=== PATIENT | female | born 1955 | race Caucasian/White ===

== ENCOUNTER 2017-01-04 13:45 | Emergency (ER) | payer MEDICAID, OTHER ==
[~2017-01-04] VITALS: Ht 162.6 cm; Wt 100.0 kg
[~2017-01-04 13:45] MED LIST: ALBU8HFA4 IH; DOCU250C91 PO; LEVO50 PO; LITH300C3 PO; LORA0.5T83 PO; OMEP20 PO; QUET200XR PO; RISP3 PO
[2017-01-04] MEDS ORDERED: PROP10 PO (14:09)
[2017-01-04] MEDS ORDERED: PRAV10TA39 PO (14:09)
[2017-01-04] MEDS ORDERED: QUET300XR PO (14:09)
[2017-01-04] MEDS ORDERED: MONT10TA21 PO (14:09)
[2017-01-04] MEDS ORDERED: RISP1 PO (14:09)
[2017-01-04] MEDS ORDERED: ZOLP10 PO (14:09)
[2017-01-04] MEDS ORDERED: LORazepam 1 MG TABLET PO ONE (16:30)
[2017-01-04 16:37] LABS: BASOPHILS % (AUTO) 0.3 % (0.0-2.0); EOSINOPHILS % (AUTO) 2.8 % (1.0-6.0); HEMATOCRIT 37.7 % (36-46); HEMOGLOBIN 12.6 g/dL (12.0-16.0); LYMPHOCYTES # (AUTO) 1.9 K/uL (1.0-4.8); LYMPHOCYTES % (AUTO) 24.4 % (22.0-44.0); MEAN CORPUSCULAR HEMOGLOBIN 29.8 pg (26.0-34.0); MEAN CORPUSCULAR HGB CONC 33.6 G/dL (31.0-37.0); MEAN CORPUSCULAR VOLUME 89 fL (80-100); MONOCYTES # (AUTO) 0.9 K/uL (0.1-1.0); MONOCYTES % (AUTO) 10.8 % (2.0-9.0); NEUTROPHILS # (AUTO) 4.9 K/uL (1.8-7.7); NEUTROPHILS % (AUTO) 61.7 % (40.0-70.0); PLATELET COUNT (AUTO) 297 K/uL (150-450); RED BLOOD CELL COUNT(AUTO) 4.24 MIL/uL (4.00-5.20)
[2017-01-04 16:45] LABS: ANION GAP 6 mmol/L (8-16); CALCIUM, TOTAL 9.1 mg/dL (8.8-10.5); CARBON DIOXIDE 28 mmol/L (22-29); CHLORIDE 106 mmol/L (98-107); CREATININE 0.82 mg/dL (0.60-1.30); GLOMERULAR FILTR. RATE CALC > 60 mL/min (>60); POTASSIUM 3.9 mmol/L (3.5-5.1); SODIUM SERUM 140 mmol/L (136-145); UREA NITROGEN, BLOOD 12 mg/dL (7-18)
[2017-01-04 16:52] LABS: ALANINE AMINOTRANSFERASE 19 U/L (12-78); ALBUMIN 3.8 g/dL (3.4-5.0); ASPARTATE AMINOTRANSFERASE 12 U/L (15-37); BILIRUBIN,TOTAL 0.3 mg/dL (0.1-1.0); TOTAL PROTEIN, SERUM 7.4 g/dL (6.4-8.2)
[2017-01-04 19:41] VITALS: BP 121/69
== END 2017-01-04 19:42 | disposition home or self-care (01) ==
LOC: EMS 13:47
DX: F41.9 Anxiety disorder, unspecified (principal); F20.0 Paranoid schizophrenia
CPT/HCPCS: 36415; 80053; 85025; 99284; G0480

== ENCOUNTER 2017-04-21 14:45 | Inpatient (IN) | payer MEDICAID ==
[~2017-04-21] VITALS: Ht 157.5 cm; Wt 102.2 kg
[~2017-04-21 14:45] MED LIST changes: -ALBU8HFA4 IH; -LITH300C3 PO; +LITH600 PO; -LORA0.5T83 PO; +METR250T PO; +MONT10TA21 PO; +PRAV10TA39 PO; +PROP10TA73 PO; -QUET200XR PO; +QUET300XR PO; -RISP3 PO
[2017-04-21 15:10] VITALS: BP 131/73
[2017-04-21] MEDS ORDERED: HALOPERIDOL 5 MG TABLET PO PRN (16:00)
[2017-04-21] MEDS ORDERED: RANI150T7 PO (17:03)
[2017-04-21] MEDS ORDERED: RISP1 PO (17:03)
[2017-04-21] MEDS ORDERED: LORA0.5T83 PO (17:03)
[2017-04-21] MEDS ORDERED: ZOLP10TA7 PO (17:04)
[2017-04-21] MEDS ORDERED: INFLUENZA VIRUS VACCINE QVS 2017-18 (3YR+)/PF 60 MCG/0.5 ML SYRINGE IM ONE (17:15)
[2017-04-21 17:55] VITALS: BP 138/69
[2017-04-22 01:19] VITALS: BP 108/61
[2017-04-22 08:29] LABS: BASOPHILS # (AUTO) 0.05 K/uL (0.00-0.20); BASOPHILS % (AUTO) 0.6 % (0.0-2.0); EOSINOPHILS # (AUTO) 0.21 K/uL (0.00-0.70); EOSINOPHILS % (AUTO) 2.72 % (1.0-6.0); HEMATOCRIT 38.4 % (36-46); HEMOGLOBIN 12.9 g/dL (12.0-16.0); LYMPHOCYTES # (AUTO) 2.1 K/uL (1.0-4.8); LYMPHOCYTES % (AUTO) 27.2 % (22.0-44.0); MEAN CORPUSCULAR HEMOGLOBIN 30.3 pg (26.0-34.0); MEAN CORPUSCULAR HGB CONC 33.5 G/dL (31.0-37.0); MEAN CORPUSCULAR VOLUME 90 fL (80-100); MONOCYTES # (AUTO) 0.8 K/uL (0.1-1.0); MONOCYTES % (AUTO) 10.2 % (2.0-9.0); NEUTROPHILS # (AUTO) 4.6 K/uL (1.8-7.7); NEUTROPHILS % (AUTO) 59.2 % (40.0-70.0); PLATELET COUNT (AUTO) 252 K/uL (150-450); RED BLOOD CELL COUNT(AUTO) 4.26 MIL/uL (4.00-5.20); RED CELL DISTRIBUTION WIDTH 13.8 % (11.5-14.5); WHITE BLOOD COUNT (AUTO) 7.8 K/uL (4.5-11.0)
[2017-04-22 08:58] LABS: HEMOGLOBIN A1C 5.2 % (4.5-6.2)
[2017-04-22 09:08] VITALS: BP 134/78
[2017-04-22 09:31] LABS: LITHIUM 0.31 mmol/L (0.60-1.20)
[2017-04-22 09:40] LABS: CHOL/HDL RATIO 5.1 (3.9-5.7); THYROID STIMULATING HORMONE 6.13 uIU/mL (0.36-3.74)
[2017-04-22] MEDS ORDERED: ACETAMINOPHEN 325 MG TABLET PO PRN (10:00)
[2017-04-22 11:07] LABS: GLUCOSE,POINT OF CARE 107 MG/DL (70-110)
[2017-04-22] MEDS: LORazepam 1 MG TABLET PO PRN ×2 (13:15→20:26)
[2017-04-22] MEDS: LORazepam 0.5 MG TABLET PO SCH ×2 (13:33→16:30)
[2017-04-22] MEDS: PROPRANOLOL HCL 10 MG TABLET PO SCH ×2 (13:33→16:29)
[2017-04-22 16:30] VITALS: BP 121/67
[2017-04-22] MEDS: RisperiDONE 1 MG TABLET PO SCH (16:30)
[2017-04-22] MEDS: RANITIDINE HCL 150 MG TABLET PO SCH (20:26)
[2017-04-22] MEDS: LITHIUM CARBONATE 600 MG CAPSULE PO SCH (20:26)
[2017-04-22] MEDS: QUEtiapine FUMARATE 300 MG ER TABLET PO SCH (20:26)
[2017-04-22] MEDS: PRAVASTATIN SODIUM 10 MG TABLET PO SCH (20:27)
[2017-04-22] MEDS: ZOLPIDEM TARTRATE 10 MG TABLET PO PRN (20:57)
[2017-04-23 04:30] VITALS: BP 110/68
[2017-04-23] MEDS: IBUPROFEN 400 MG TABLET PO PRN (04:43)
[2017-04-23] MEDS ORDERED: LEVOTHYROXINE SODIUM 50 MCG TABLET PO SCH (06:30)
[2017-04-23] MEDS: LEVOTHYROXINE SODIUM 75 MCG TABLET PO SCH (06:39)
[2017-04-23] MEDS: MONTELUKAST SODIUM 10 MG TABLET PO SCH (08:43)
[2017-04-23] MEDS: RisperiDONE 1 MG TABLET PO SCH ×2 (08:43→16:16)
[2017-04-23] MEDS: LORazepam 0.5 MG TABLET PO SCH ×3 (08:43→16:16)
[2017-04-23] MEDS: PROPRANOLOL HCL 10 MG TABLET PO SCH ×3 (08:43→16:16)
[2017-04-23] MEDS: OMEPRAZOLE 20 MG CAPSULE PO SCH (08:43)
[2017-04-23 16:26] VITALS: BP 139/74
[2017-04-23] MEDS: PRAVASTATIN SODIUM 10 MG TABLET PO SCH (20:08)
[2017-04-23] MEDS: RANITIDINE HCL 150 MG TABLET PO SCH (20:08)
[2017-04-23] MEDS: QUEtiapine FUMARATE 300 MG ER TABLET PO SCH (20:08)
[2017-04-23] MEDS: LITHIUM CARBONATE 600 MG CAPSULE PO SCH (20:08)
[2017-04-23] MEDS: LORazepam 1 MG TABLET PO PRN (20:08)
[2017-04-24 00:08] VITALS: BP 113/62
[2017-04-24] MEDS: LEVOTHYROXINE SODIUM 75 MCG TABLET PO SCH (06:33)
[2017-04-24 08:31] VITALS: BP 121/75
[2017-04-24] MEDS: OMEPRAZOLE 20 MG CAPSULE PO SCH (08:43)
[2017-04-24] MEDS: MONTELUKAST SODIUM 10 MG TABLET PO SCH (08:43)
[2017-04-24] MEDS: LORazepam 0.5 MG TABLET PO SCH ×3 (08:43→16:10)
[2017-04-24] MEDS: RisperiDONE 1 MG TABLET PO SCH ×2 (08:43→16:09)
[2017-04-24] MEDS: PROPRANOLOL HCL 10 MG TABLET PO SCH ×3 (08:43→16:09)
[2017-04-24 16:26] VITALS: BP 125/86
[2017-04-24] MEDS: IBUPROFEN 400 MG TABLET PO PRN (18:36)
[2017-04-24] MEDS: PRAVASTATIN SODIUM 10 MG TABLET PO SCH (20:13)
[2017-04-24] MEDS: LITHIUM CARBONATE 600 MG CAPSULE PO SCH (20:13)
[2017-04-24] MEDS: RANITIDINE HCL 150 MG TABLET PO SCH (20:13)
[2017-04-24] MEDS: QUEtiapine FUMARATE 300 MG ER TABLET PO SCH (20:13)
[2017-04-25 00:10] VITALS: BP 114/61
[2017-04-25] MEDS: LEVOTHYROXINE SODIUM 75 MCG TABLET PO SCH (06:50)
[2017-04-25 08:28] VITALS: BP 115/67
[2017-04-25] MEDS: OMEPRAZOLE 20 MG CAPSULE PO SCH (09:15)
[2017-04-25] MEDS: LORazepam 0.5 MG TABLET PO SCH ×3 (09:15→16:08)
[2017-04-25] MEDS: PROPRANOLOL HCL 10 MG TABLET PO SCH ×3 (09:15→16:08)
[2017-04-25] MEDS: RisperiDONE 1 MG TABLET PO SCH ×2 (09:15→16:08)
[2017-04-25] MEDS: MONTELUKAST SODIUM 10 MG TABLET PO SCH (09:15)
[2017-04-25 13:03] VITALS: BP 136/71
[2017-04-25 16:09] VITALS: BP 111/67
[2017-04-25] MEDS: PALIPERIDONE 3 MG ER TABLET PO SCH (20:17)
[2017-04-25] MEDS: RANITIDINE HCL 150 MG TABLET PO SCH (20:17)
[2017-04-25] MEDS: QUEtiapine FUMARATE 300 MG ER TABLET PO SCH (20:17)
[2017-04-25] MEDS: PRAVASTATIN SODIUM 10 MG TABLET PO SCH (20:17)
[2017-04-25] MEDS: LITHIUM CARBONATE 600 MG CAPSULE PO SCH (20:17)
[2017-04-25] MEDS: ZOLPIDEM TARTRATE 10 MG TABLET PO PRN (20:46)
[2017-04-26 01:14] VITALS: BP 102/62
[2017-04-26] MEDS: IBUPROFEN 400 MG TABLET PO PRN (06:37)
[2017-04-26] MEDS: LEVOTHYROXINE SODIUM 75 MCG TABLET PO SCH (06:46)
[2017-04-26] MEDS: OMEPRAZOLE 20 MG CAPSULE PO SCH (08:21)
[2017-04-26] MEDS: RisperiDONE 1 MG TABLET PO SCH ×2 (08:21→16:53)
[2017-04-26] MEDS: LORazepam 0.5 MG TABLET PO SCH ×3 (08:22→17:36)
[2017-04-26] MEDS: MONTELUKAST SODIUM 10 MG TABLET PO SCH (09:00)
[2017-04-26] MEDS: PROPRANOLOL HCL 10 MG TABLET PO SCH ×3 (09:28→17:03)
[2017-04-26 10:24] VITALS: BP 100/64
[2017-04-26 17:00] VITALS: BP 110/70
[2017-04-26] MEDS: LITHIUM CARBONATE 600 MG CAPSULE PO SCH (20:00)
[2017-04-26] MEDS: RANITIDINE HCL 150 MG TABLET PO SCH (20:00)
[2017-04-26] MEDS: QUEtiapine FUMARATE 300 MG ER TABLET PO SCH (20:00)
[2017-04-26] MEDS: PALIPERIDONE 3 MG ER TABLET PO SCH (20:00)
[2017-04-26] MEDS: PRAVASTATIN SODIUM 10 MG TABLET PO SCH (20:00)
[2017-04-27 00:17] VITALS: BP 108/61
[2017-04-27] MEDS: LEVOTHYROXINE SODIUM 75 MCG TABLET PO SCH (06:21)
[2017-04-27] MEDS: LORazepam 0.5 MG TABLET PO SCH ×3 (09:05→16:08)
[2017-04-27] MEDS: MONTELUKAST SODIUM 10 MG TABLET PO SCH (09:06)
[2017-04-27] MEDS: RisperiDONE 1 MG TABLET PO SCH ×2 (09:06→16:08)
[2017-04-27] MEDS: OMEPRAZOLE 20 MG CAPSULE PO SCH (09:06)
[2017-04-27] MEDS: PROPRANOLOL HCL 10 MG TABLET PO SCH ×3 (09:30→16:08)
[2017-04-27 11:07] VITALS: BP 110/68
[2017-04-27 16:41] VITALS: BP 110/84
[2017-04-27] MEDS: PALIPERIDONE 3 MG ER TABLET PO SCH (20:07)
[2017-04-27] MEDS: RANITIDINE HCL 150 MG TABLET PO SCH (20:07)
[2017-04-27] MEDS: QUEtiapine FUMARATE 300 MG ER TABLET PO SCH (20:08)
[2017-04-27] MEDS: LITHIUM CARBONATE 600 MG CAPSULE PO SCH (20:08)
[2017-04-27] MEDS: PRAVASTATIN SODIUM 10 MG TABLET PO SCH (20:20)
[2017-04-27] MEDS: ZOLPIDEM TARTRATE 10 MG TABLET PO PRN (21:16)
[2017-04-28] MEDS: DENTURE ADHESIVE 68 GM CREAM DT PRN (01:03)
[2017-04-28 02:24] VITALS: BP 112/69
[2017-04-28] MEDS: IBUPROFEN 400 MG TABLET PO PRN (02:29)
[2017-04-28] MEDS: LEVOTHYROXINE SODIUM 75 MCG TABLET PO SCH (06:40)
[2017-04-28] MEDS: PROPRANOLOL HCL 10 MG TABLET PO SCH ×3 (09:07→16:15)
[2017-04-28] MEDS: OMEPRAZOLE 20 MG CAPSULE PO SCH (09:07)
[2017-04-28] MEDS: RisperiDONE 1 MG TABLET PO SCH ×2 (09:07→16:15)
[2017-04-28] MEDS: LORazepam 0.5 MG TABLET PO SCH ×3 (09:07→16:15)
[2017-04-28] MEDS: MONTELUKAST SODIUM 10 MG TABLET PO SCH (09:07)
[2017-04-28 09:46] VITALS: BP 115/62
[2017-04-28 12:29] VITALS: BP 118/72
[2017-04-28 16:13] VITALS: BP 121/71
[2017-04-28] MEDS: PALIPERIDONE 3 MG ER TABLET PO SCH (20:11)
[2017-04-28] MEDS: PRAVASTATIN SODIUM 10 MG TABLET PO SCH (20:11)
[2017-04-28] MEDS: RANITIDINE HCL 150 MG TABLET PO SCH (20:12)
[2017-04-28] MEDS: QUEtiapine FUMARATE 300 MG ER TABLET PO SCH (20:12)
[2017-04-28] MEDS: LITHIUM CARBONATE 600 MG CAPSULE PO SCH (20:12)
[2017-04-29 02:00] VITALS: BP 111/61
[2017-04-29] MEDS: LEVOTHYROXINE SODIUM 75 MCG TABLET PO SCH (06:52)
[2017-04-29 08:15] VITALS: BP 107/67
[2017-04-29] MEDS: OMEPRAZOLE 20 MG CAPSULE PO SCH (08:34)
[2017-04-29] MEDS: PROPRANOLOL HCL 10 MG TABLET PO SCH ×3 (08:34→16:17)
[2017-04-29] MEDS: LORazepam 0.5 MG TABLET PO SCH ×3 (08:34→16:17)
[2017-04-29] MEDS: MONTELUKAST SODIUM 10 MG TABLET PO SCH (08:34)
[2017-04-29] MEDS: RisperiDONE 1 MG TABLET PO SCH ×2 (08:34→16:17)
[2017-04-29] MEDS ORDERED: PALIPERIDONE PALMITATE 156 MG/ML SYRINGE IM SCH (09:00)
[2017-04-29 16:37] VITALS: BP 121/78
[2017-04-29] MEDS: RANITIDINE HCL 150 MG TABLET PO SCH (20:15)
[2017-04-29] MEDS: QUEtiapine FUMARATE 300 MG ER TABLET PO SCH (20:15)
[2017-04-29] MEDS: LITHIUM CARBONATE 600 MG CAPSULE PO SCH (20:16)
[2017-04-29] MEDS: PRAVASTATIN SODIUM 10 MG TABLET PO SCH (20:16)
[2017-04-30] MEDS ORDERED: MAGNESIUM HYDROXIDE SUSPENSION 30 ML UDCUP PO PRN (06:15)
[2017-04-30 06:55] VITALS: BP 117/76
[2017-04-30] MEDS: LEVOTHYROXINE SODIUM 75 MCG TABLET PO SCH (07:08)
[2017-04-30 09:00] VITALS: BP 128/58
[2017-04-30] MEDS: OMEPRAZOLE 20 MG CAPSULE PO SCH (09:05)
[2017-04-30] MEDS: RisperiDONE 1 MG TABLET PO SCH ×2 (09:05→16:25)
[2017-04-30] MEDS: PROPRANOLOL HCL 10 MG TABLET PO SCH ×3 (09:05→16:25)
[2017-04-30] MEDS: DOCUSATE SODIUM 250 MG CAPSULE PO SCH ×2 (09:05→16:25)
[2017-04-30] MEDS: LORazepam 0.5 MG TABLET PO SCH ×3 (09:05→16:24)
[2017-04-30] MEDS: MONTELUKAST SODIUM 10 MG TABLET PO SCH (09:05)
[2017-04-30 16:30] VITALS: BP 125/60
[2017-04-30] MEDS: ZOLPIDEM TARTRATE 10 MG TABLET PO PRN (20:38)
[2017-04-30] MEDS: RANITIDINE HCL 150 MG TABLET PO SCH (20:38)
[2017-04-30] MEDS: LITHIUM CARBONATE 600 MG CAPSULE PO SCH (20:38)
[2017-04-30] MEDS: QUEtiapine FUMARATE 300 MG ER TABLET PO SCH (20:38)
[2017-04-30] MEDS: PRAVASTATIN SODIUM 10 MG TABLET PO SCH (20:39)
[2017-05-01 00:11] VITALS: BP 101/67
[2017-05-01] MEDS: LEVOTHYROXINE SODIUM 75 MCG TABLET PO SCH (07:07)
[2017-05-01] MEDS: DENTURE ADHESIVE 68 GM CREAM DT PRN (07:09)
[2017-05-01] MEDS: OMEPRAZOLE 20 MG CAPSULE PO SCH (08:45)
[2017-05-01] MEDS: RisperiDONE 1 MG TABLET PO SCH ×2 (08:45→16:39)
[2017-05-01] MEDS: LORazepam 0.5 MG TABLET PO SCH ×3 (08:45→16:39)
[2017-05-01] MEDS: PROPRANOLOL HCL 10 MG TABLET PO SCH ×3 (08:45→16:39)
[2017-05-01] MEDS: DOCUSATE SODIUM 250 MG CAPSULE PO SCH ×2 (08:45→16:39)
[2017-05-01] MEDS: MONTELUKAST SODIUM 10 MG TABLET PO SCH (08:45)
[2017-05-01 09:29] VITALS: BP 121/49
[2017-05-01 12:44] VITALS: BP 122/75
[2017-05-01 16:14] VITALS: BP 128/88
[2017-05-01] MEDS: ZOLPIDEM TARTRATE 10 MG TABLET PO PRN (20:32)
[2017-05-01] MEDS: QUEtiapine FUMARATE 300 MG ER TABLET PO SCH (20:32)
[2017-05-01] MEDS: LITHIUM CARBONATE 600 MG CAPSULE PO SCH (20:33)
[2017-05-01] MEDS: RANITIDINE HCL 150 MG TABLET PO SCH (20:33)
[2017-05-01] MEDS: PRAVASTATIN SODIUM 10 MG TABLET PO SCH (20:33)
[2017-05-02] MEDS: LEVOTHYROXINE SODIUM 75 MCG TABLET PO SCH (06:41)
[2017-05-02 06:46] VITALS: BP 120/65
[2017-05-02 08:53] VITALS: BP 135/66
[2017-05-02] MEDS: OMEPRAZOLE 20 MG CAPSULE PO SCH (09:25)
[2017-05-02] MEDS: LORazepam 0.5 MG TABLET PO SCH ×3 (09:25→17:27)
[2017-05-02] MEDS: MONTELUKAST SODIUM 10 MG TABLET PO SCH (09:25)
[2017-05-02] MEDS: RisperiDONE 1 MG TABLET PO SCH ×2 (09:25→16:10)
[2017-05-02] MEDS: DOCUSATE SODIUM 250 MG CAPSULE PO SCH ×2 (09:25→16:10)
[2017-05-02] MEDS: PROPRANOLOL HCL 10 MG TABLET PO SCH ×3 (10:30→16:10)
[2017-05-02 16:28] VITALS: BP 125/70
[2017-05-02] MEDS: QUEtiapine FUMARATE 300 MG ER TABLET PO SCH (20:09)
[2017-05-02] MEDS: LITHIUM CARBONATE 600 MG CAPSULE PO SCH (20:09)
[2017-05-02] MEDS: RANITIDINE HCL 150 MG TABLET PO SCH (20:09)
[2017-05-02] MEDS: PRAVASTATIN SODIUM 10 MG TABLET PO SCH (20:09)
[2017-05-02] MEDS: ZOLPIDEM TARTRATE 10 MG TABLET PO PRN (20:28)
[2017-05-03 06:13] VITALS: BP 104/64
[2017-05-03] MEDS: LEVOTHYROXINE SODIUM 75 MCG TABLET PO SCH (06:34)
[2017-05-03 09:02] VITALS: BP 121/56
[2017-05-03] MEDS: LORazepam 0.5 MG TABLET PO SCH ×3 (09:17→17:08)
[2017-05-03] MEDS: DOCUSATE SODIUM 250 MG CAPSULE PO SCH ×2 (09:17→16:05)
[2017-05-03] MEDS: PROPRANOLOL HCL 10 MG TABLET PO SCH ×3 (09:17→16:05)
[2017-05-03] MEDS: OMEPRAZOLE 20 MG CAPSULE PO SCH (09:17)
[2017-05-03] MEDS: RisperiDONE 1 MG TABLET PO SCH ×2 (09:17→16:06)
[2017-05-03] MEDS: MONTELUKAST SODIUM 10 MG TABLET PO SCH (09:17)
[2017-05-03 17:16] VITALS: BP 125/61
[2017-05-03] MEDS: PRAVASTATIN SODIUM 10 MG TABLET PO SCH (20:00)
[2017-05-03] MEDS: RANITIDINE HCL 150 MG TABLET PO SCH (20:00)
[2017-05-03] MEDS: QUEtiapine FUMARATE 300 MG ER TABLET PO SCH (20:00)
[2017-05-03] MEDS: LITHIUM CARBONATE 600 MG CAPSULE PO SCH (20:00)
[2017-05-03] MEDS: ZOLPIDEM TARTRATE 10 MG TABLET PO PRN (20:27)
[2017-05-04 00:14] VITALS: BP 109/64
[2017-05-04] MEDS: DENTURE ADHESIVE 68 GM CREAM DT PRN (04:45)
[2017-05-04] MEDS: LEVOTHYROXINE SODIUM 75 MCG TABLET PO SCH (06:57)
[2017-05-04] MEDS: LORazepam 0.5 MG TABLET PO SCH ×3 (08:38→17:12)
[2017-05-04] MEDS: PROPRANOLOL HCL 10 MG TABLET PO SCH ×3 (08:38→16:05)
[2017-05-04] MEDS: DOCUSATE SODIUM 250 MG CAPSULE PO SCH ×2 (08:38→16:05)
[2017-05-04] MEDS: MONTELUKAST SODIUM 10 MG TABLET PO SCH (08:39)
[2017-05-04] MEDS: RisperiDONE 1 MG TABLET PO SCH ×2 (08:39→16:05)
[2017-05-04] MEDS: OMEPRAZOLE 20 MG CAPSULE PO SCH (08:39)
[2017-05-04 09:01] VITALS: BP 133/60
[2017-05-04 16:00] VITALS: BP 135/82
[2017-05-04 18:00] VITALS: BP 128/69
[2017-05-04] MEDS: IBUPROFEN 400 MG TABLET PO PRN (18:00)
[2017-05-04] MEDS: LITHIUM CARBONATE 600 MG CAPSULE PO SCH (20:15)
[2017-05-04] MEDS: RANITIDINE HCL 150 MG TABLET PO SCH (20:15)
[2017-05-04] MEDS: QUEtiapine FUMARATE 300 MG ER TABLET PO SCH (20:15)
[2017-05-04] MEDS: PRAVASTATIN SODIUM 10 MG TABLET PO SCH (20:15)
[2017-05-04] MEDS: ZOLPIDEM TARTRATE 10 MG TABLET PO PRN (20:28)
[2017-05-05 00:30] VITALS: BP 120/80
[2017-05-05] MEDS: LEVOTHYROXINE SODIUM 75 MCG TABLET PO SCH (06:18)
[2017-05-05 08:34] VITALS: BP 138/67
[2017-05-05] MEDS ORDERED: LEVO50TA11 PO (08:42)
[2017-05-05] MEDS ORDERED: DOCU100C33 PO (08:43)
[2017-05-05] MEDS ORDERED: DOCU250C91 PO (08:44)
[2017-05-05] MEDS: OMEPRAZOLE 20 MG CAPSULE PO SCH (08:44)
[2017-05-05] MEDS: DOCUSATE SODIUM 250 MG CAPSULE PO SCH (08:44)
[2017-05-05] MEDS: RisperiDONE 1 MG TABLET PO SCH (08:44)
[2017-05-05] MEDS: LORazepam 0.5 MG TABLET PO SCH ×2 (08:44→12:42)
[2017-05-05] MEDS: MONTELUKAST SODIUM 10 MG TABLET PO SCH (08:44)
[2017-05-05] MEDS ORDERED: PALI156D IM (08:47)
[2017-05-05] MEDS: PROPRANOLOL HCL 10 MG TABLET PO SCH ×2 (09:46→12:42)
== END 2017-05-05 13:13 | disposition home or self-care (01) | DRG 750 ==
LOC: B2S 15:45
PROVIDERS: ADMIT Psychiatry & Neurology Psychiatry; ATTEND Psychiatry & Neurology Psychiatry
DX: F25.9 Schizoaffective disorder, unspecified (principal); I10 Essential (primary) hypertension; J44.9 Chronic obstructive pulmonary disease, unspecified; E03.9 Hypothyroidism, unspecified; E78.5 Hyperlipidemia, unspecified; K21.9 Gastro-esophageal reflux disease without esophagitis; Z82.49 Family history of ischemic heart disease and other diseases of the circulatory system; Z79.899 Other long term (current) drug therapy; Z79.51 Long term (current) use of inhaled steroids; Z28.21 Immunization not carried out because of patient refusal
CPT/HCPCS: 82962; 83036; 84439; 84443

== ENCOUNTER 2017-05-12 13:39 | Inpatient (IN) | payer MEDICAID ==
[~2017-05-12] VITALS: Ht 165.1 cm; Wt 99.3 kg
[~2017-05-12 13:39] MED LIST changes: -LEVO50 PO; +LEVO50TA11 PO; -METR250T PO; +PALI156D IM; +RANI150T7 PO; +RISP1 PO
[2017-05-12 15:53] VITALS: BP 143/65
[2017-05-12] MEDS ORDERED: INFLUENZA VIRUS VACCINE QVS 2017-18 (3YR+)/PF 60 MCG/0.5 ML SYRINGE IM ONE (16:00)
[2017-05-12 16:48] VITALS: BP 130/77
[2017-05-12 16:50] VITALS: BP 130/77
[2017-05-12] MEDS: LORazepam 0.5 MG TABLET PO SCH (17:04)
[2017-05-12] MEDS: DOCUSATE SODIUM 250 MG CAPSULE PO SCH (17:04)
[2017-05-12] MEDS: PROPRANOLOL HCL 10 MG TABLET PO SCH (20:59)
[2017-05-12] MEDS: LITHIUM CARBONATE 600 MG CAPSULE PO SCH (20:59)
[2017-05-12] MEDS: ZOLPIDEM TARTRATE 10 MG TABLET PO PRN (21:00)
[2017-05-12] MEDS: PRAVASTATIN SODIUM 10 MG TABLET PO SCH (21:44)
[2017-05-13] MEDS: ACETAMINOPHEN 325 MG TABLET PO PRN ×2 (00:13→21:23)
[2017-05-13 01:27] VITALS: BP_SYST 109; BP_SYST 127; BP_DIAS 55; BP_DIAS 75
[2017-05-13] MEDS: LEVOTHYROXINE SODIUM 75 MCG TABLET PO SCH (06:45)
[2017-05-13 08:11] LABS: BASOPHILS % (AUTO) 0.4 % (0.0-2.0); EOSINOPHILS % (AUTO) 2.6 % (1.0-6.0); HEMATOCRIT 38.8 % (36-46); HEMOGLOBIN 12.9 g/dL (12.0-16.0); LYMPHOCYTES # (AUTO) 2.4 K/uL (1.0-4.8); LYMPHOCYTES % (AUTO) 26.7 % (22.0-44.0); MEAN CORPUSCULAR HEMOGLOBIN 30.1 pg (26.0-34.0); MEAN CORPUSCULAR HGB CONC 33.3 G/dL (31.0-37.0); MEAN CORPUSCULAR VOLUME 90 fL (80-100); MONOCYTES # (AUTO) 0.9 K/uL (0.1-1.0); MONOCYTES % (AUTO) 10.6 % (2.0-9.0); NEUTROPHILS # (AUTO) 5.3 K/uL (1.8-7.7); NEUTROPHILS % (AUTO) 59.7 % (40.0-70.0); PLATELET COUNT (AUTO) 283 K/uL (150-450); RED CELL DISTRIBUTION WIDTH 13.7 % (11.5-14.5); WHITE BLOOD COUNT (AUTO) 8.8 K/uL (4.5-11.0)
[2017-05-13 08:27] LABS: LITHIUM 0.76 mmol/L (0.60-1.20)
[2017-05-13] MEDS: MONTELUKAST SODIUM 10 MG TABLET PO SCH (08:38)
[2017-05-13] MEDS: OMEPRAZOLE 20 MG CAPSULE PO SCH (08:38)
[2017-05-13] MEDS: DOCUSATE SODIUM 250 MG CAPSULE PO SCH ×2 (08:38→16:19)
[2017-05-13] MEDS: LORazepam 0.5 MG TABLET PO SCH ×3 (08:38→16:17)
[2017-05-13 08:40] LABS: HEMOGLOBIN A1C 6.2 % (4.5-6.2)
[2017-05-13 08:44] LABS: ALANINE AMINOTRANSFERASE 18 U/L (12-78); ALBUMIN 3.7 g/dL (3.4-5.0); ANION GAP 8 mmol/L (8-16); ASPARTATE AMINOTRANSFERASE 9 U/L (15-37); BILIRUBIN,TOTAL 0.2 mg/dL (0.1-1.0); CALCIUM, TOTAL 9.3 mg/dL (8.8-10.5); CARBON DIOXIDE 25 mmol/L (22-29); CHLORIDE 107 mmol/L (98-107); CHOL/HDL RATIO 5.7 (3.9-5.7); CREATININE 0.76 mg/dL (0.60-1.30); GLOMERULAR FILTR. RATE CALC > 60 mL/min (>60); SODIUM SERUM 140 mmol/L (136-145); THYROID STIMULATING HORMONE 17.39 uIU/mL (0.36-3.74); TOTAL PROTEIN, SERUM 8.2 g/dL (6.4-8.2); UREA NITROGEN, BLOOD 16 mg/dL (7-18)
[2017-05-13 09:05] VITALS: BP 123/70
[2017-05-13 16:46] VITALS: BP 106/64
[2017-05-13] MEDS ORDERED: DENTURE ADHESIVE 68 GM CREAM DT PRN (17:15)
[2017-05-13] MEDS: PRAVASTATIN SODIUM 10 MG TABLET PO SCH (20:22)
[2017-05-13] MEDS: PROPRANOLOL HCL 10 MG TABLET PO SCH (20:23)
[2017-05-13] MEDS: LITHIUM CARBONATE 600 MG CAPSULE PO SCH (20:23)
[2017-05-13 21:22] VITALS: BP 135/86
[2017-05-13] MEDS: ZOLPIDEM TARTRATE 10 MG TABLET PO PRN (21:22)
[2017-05-13] MEDS: HALOPERIDOL 5 MG TABLET PO PRN (23:48)
[2017-05-14] VITALS (10 sets, daily range): BP systolic 122–161; BP diastolic 50–92
[2017-05-14] MEDS: LEVOTHYROXINE SODIUM 75 MCG TABLET PO SCH (06:17)
[2017-05-14 07:58] LABS: GLUCOSE,POINT OF CARE 131 MG/DL (70-110)
[2017-05-14] MEDS ORDERED: CloNIDine HCL 0.1 MG TABLET PO PRN (08:45)
[2017-05-14] MEDS: DOCUSATE SODIUM 250 MG CAPSULE PO SCH ×2 (09:00→16:36)
[2017-05-14] MEDS: LORazepam 0.5 MG TABLET PO SCH ×3 (09:00→16:36)
[2017-05-14] MEDS: MONTELUKAST SODIUM 10 MG TABLET PO SCH (09:14)
[2017-05-14] MEDS: OMEPRAZOLE 20 MG CAPSULE PO SCH (09:14)
[2017-05-14] MEDS: ACETAMINOPHEN 325 MG TABLET PO PRN (09:15)
[2017-05-14] MEDS: MAG HYDROX/AL HYDROX/SIMETH ES 30 ML SUSPENSION UDCUP PO PRN (10:41)
[2017-05-14] MEDS ORDERED: HydrALAZINE HCL 10 MG TABLET PO PRN (16:45)
[2017-05-14] MEDS: LITHIUM CARBONATE 600 MG CAPSULE PO SCH (20:30)
[2017-05-14] MEDS: PROPRANOLOL HCL 10 MG TABLET PO SCH (20:31)
[2017-05-14] MEDS: PRAVASTATIN SODIUM 10 MG TABLET PO SCH (20:31)
[2017-05-14] MEDS: ZOLPIDEM TARTRATE 10 MG TABLET PO PRN (21:05)
[2017-05-15 01:16] VITALS: BP 116/64
[2017-05-15 02:56] VITALS: BP 136/86
[2017-05-15] MEDS: HALOPERIDOL 5 MG TABLET PO PRN (03:00)
[2017-05-15 03:36] VITALS: BP 136/86
[2017-05-15] MEDS: ACETAMINOPHEN 325 MG TABLET PO PRN (04:23)
[2017-05-15] MEDS: MAG HYDROX/AL HYDROX/SIMETH ES 30 ML SUSPENSION UDCUP PO PRN (05:43)
[2017-05-15] MEDS: LEVOTHYROXINE SODIUM 75 MCG TABLET PO SCH (06:44)
[2017-05-15] MEDS: MONTELUKAST SODIUM 10 MG TABLET PO SCH (08:21)
[2017-05-15] MEDS: LORazepam 0.5 MG TABLET PO SCH ×3 (08:21→17:07)
[2017-05-15] MEDS: OMEPRAZOLE 20 MG CAPSULE PO SCH (08:21)
[2017-05-15] MEDS: DOCUSATE SODIUM 250 MG CAPSULE PO SCH ×2 (08:21→17:07)
[2017-05-15 08:24] VITALS: BP 123/88
[2017-05-15 09:55] VITALS: BP 123/58
[2017-05-15 16:17] VITALS: BP 119/78
[2017-05-15] MEDS: PROPRANOLOL HCL 10 MG TABLET PO SCH (21:09)
[2017-05-15] MEDS: LITHIUM CARBONATE 600 MG CAPSULE PO SCH (21:09)
[2017-05-15] MEDS: PRAVASTATIN SODIUM 10 MG TABLET PO SCH (21:09)
[2017-05-15] MEDS: ZOLPIDEM TARTRATE 10 MG TABLET PO PRN (21:10)
[2017-05-16 00:06] VITALS: BP 106/69
[2017-05-16] MEDS: LEVOTHYROXINE SODIUM 75 MCG TABLET PO SCH (06:32)
[2017-05-16] MEDS: DOCUSATE SODIUM 250 MG CAPSULE PO SCH ×2 (08:29→16:23)
[2017-05-16] MEDS: OMEPRAZOLE 20 MG CAPSULE PO SCH (08:29)
[2017-05-16] MEDS: MONTELUKAST SODIUM 10 MG TABLET PO SCH (08:29)
[2017-05-16] MEDS: LORazepam 0.5 MG TABLET PO SCH ×3 (08:29→16:24)
[2017-05-16 10:25] VITALS: BP 142/65
[2017-05-16 16:10] VITALS: BP 140/78
[2017-05-16] MEDS: ACETAMINOPHEN 325 MG TABLET PO PRN (17:02)
[2017-05-16] MEDS ORDERED: LEVO75 PO (18:11)
[2017-05-16 19:07] LABS: GLUCOSE,POINT OF CARE 111 MG/DL (70-110)
[2017-05-16] MEDS: ONDANSETRON HCL 4 MG TABLET PO PRN (19:09)
[2017-05-16] MEDS: PRAVASTATIN SODIUM 10 MG TABLET PO SCH (20:01)
[2017-05-16] MEDS: LITHIUM CARBONATE 600 MG CAPSULE PO SCH (20:01)
[2017-05-16] MEDS: PROPRANOLOL HCL 10 MG TABLET PO SCH (20:01)
[2017-05-16] MEDS: ZOLPIDEM TARTRATE 10 MG TABLET PO PRN (21:27)
[2017-05-17] MEDS: LEVOTHYROXINE SODIUM 75 MCG TABLET PO SCH (06:34)
[2017-05-17] MEDS: LORazepam 0.5 MG TABLET PO SCH ×3 (08:35→16:38)
[2017-05-17] MEDS: OMEPRAZOLE 20 MG CAPSULE PO SCH (08:35)
[2017-05-17] MEDS: MONTELUKAST SODIUM 10 MG TABLET PO SCH (08:35)
[2017-05-17] MEDS: DOCUSATE SODIUM 250 MG CAPSULE PO SCH ×2 (08:35→16:41)
[2017-05-17] MEDS: ONDANSETRON HCL 4 MG TABLET PO PRN (08:37)
[2017-05-17 08:44] VITALS: BP 130/77
[2017-05-17] MEDS: ACETAMINOPHEN 325 MG TABLET PO PRN (08:44)
[2017-05-17 09:05] VITALS: BP 130/77
[2017-05-17 16:00] VITALS: BP 134/84
[2017-05-17] MEDS: PROPRANOLOL HCL 10 MG TABLET PO SCH (20:44)
[2017-05-17] MEDS: PRAVASTATIN SODIUM 10 MG TABLET PO SCH (20:44)
[2017-05-17] MEDS: LITHIUM CARBONATE 600 MG CAPSULE PO SCH (20:44)
[2017-05-17] MEDS: ZOLPIDEM TARTRATE 10 MG TABLET PO PRN (21:21)
[2017-05-18 02:57] VITALS: BP 140/86
[2017-05-18] MEDS: ACETAMINOPHEN 325 MG TABLET PO PRN ×2 (03:01→14:35)
[2017-05-18] MEDS: LEVOTHYROXINE SODIUM 75 MCG TABLET PO SCH (05:55)
[2017-05-18] MEDS: OMEPRAZOLE 20 MG CAPSULE PO SCH (08:28)
[2017-05-18] MEDS: MONTELUKAST SODIUM 10 MG TABLET PO SCH (08:28)
[2017-05-18] MEDS: DOCUSATE SODIUM 250 MG CAPSULE PO SCH ×2 (08:29→16:45)
[2017-05-18] MEDS: LORazepam 0.5 MG TABLET PO SCH ×3 (08:29→16:44)
[2017-05-18 09:15] VITALS: BP 117/78
[2017-05-18] MEDS: IBUPROFEN 400 MG TABLET PO PRN (09:17)
[2017-05-18] MEDS: LITHIUM CARBONATE 600 MG CAPSULE PO SCH (20:05)
[2017-05-18] MEDS: PROPRANOLOL HCL 10 MG TABLET PO SCH (20:05)
[2017-05-18] MEDS: PRAVASTATIN SODIUM 10 MG TABLET PO SCH (20:05)
[2017-05-18] MEDS: ZOLPIDEM TARTRATE 10 MG TABLET PO PRN (21:02)
[2017-05-19 01:04] VITALS: BP 112/69
[2017-05-19] MEDS: HALOPERIDOL 5 MG TABLET PO PRN (01:17)
[2017-05-19] MEDS: ACETAMINOPHEN 325 MG TABLET PO PRN ×2 (01:17→10:37)
[2017-05-19 05:50] VITALS: BP 125/83
[2017-05-19] MEDS: IBUPROFEN 400 MG TABLET PO PRN ×2 (06:04→14:45)
[2017-05-19] MEDS: LEVOTHYROXINE SODIUM 75 MCG TABLET PO SCH (06:43)
[2017-05-19 08:08] VITALS: BP 136/67
[2017-05-19] MEDS: LORazepam 0.5 MG TABLET PO SCH ×3 (08:13→16:20)
[2017-05-19] MEDS: OMEPRAZOLE 20 MG CAPSULE PO SCH (08:13)
[2017-05-19] MEDS: MONTELUKAST SODIUM 10 MG TABLET PO SCH (08:13)
[2017-05-19] MEDS: DOCUSATE SODIUM 250 MG CAPSULE PO SCH ×2 (08:13→16:20)
[2017-05-19 16:07] VITALS: BP 141/64
[2017-05-19] MEDS: PROPRANOLOL HCL 10 MG TABLET PO SCH (20:29)
[2017-05-19] MEDS: PRAVASTATIN SODIUM 10 MG TABLET PO SCH (20:29)
[2017-05-19] MEDS: LITHIUM CARBONATE 600 MG CAPSULE PO SCH (20:30)
[2017-05-19] MEDS: ZOLPIDEM TARTRATE 10 MG TABLET PO PRN (20:30)
[2017-05-20 00:04] VITALS: BP 140/80
[2017-05-20] MEDS: IBUPROFEN 400 MG TABLET PO PRN ×2 (00:07→09:43)
[2017-05-20] MEDS: HALOPERIDOL 5 MG TABLET PO PRN ×2 (00:53→06:47)
[2017-05-20] MEDS: ACETAMINOPHEN 325 MG TABLET PO PRN ×2 (02:41→16:04)
[2017-05-20] MEDS: LEVOTHYROXINE SODIUM 75 MCG TABLET PO SCH (06:19)
[2017-05-20 08:40] LABS: GLUCOSE, URINE (UA) NEGATIVE (NEGATIVE); KETONES,URINE NEGATIVE (NEGATIVE); LEUKOCYTE ESTERASE ,URINE MODERATE (NEGATIVE); OCCULT BLOOD,URINE NEGATIVE (NEGATIVE); PH,URINE 6.5 (5.0-8.0); PROTEIN,URINE NEGATIVE (NEGATIVE)
[2017-05-20 08:44] LABS: ADD UA MICROSCOPIC YES; APPEARANCE,URINE HAZY (CLEAR)
[2017-05-20 08:45] LABS: RBC,URINE None Seen /HPF (0-2)
[2017-05-20 08:46] LABS: SQUAMOUS EPITHELIAL CELL,UR Few /LPF (None Seen)
[2017-05-20 09:00] VITALS: BP 139/89
[2017-05-20] MEDS: DOCUSATE SODIUM 250 MG CAPSULE PO SCH ×2 (09:41→16:03)
[2017-05-20] MEDS: MONTELUKAST SODIUM 10 MG TABLET PO SCH (09:42)
[2017-05-20] MEDS: OMEPRAZOLE 20 MG CAPSULE PO SCH (09:42)
[2017-05-20] MEDS: LORazepam 0.5 MG TABLET PO SCH ×3 (09:42→16:03)
[2017-05-20 16:30] VITALS: BP 135/67
[2017-05-20] MEDS: PRAVASTATIN SODIUM 10 MG TABLET PO SCH (20:02)
[2017-05-20] MEDS: PROPRANOLOL HCL 10 MG TABLET PO SCH (20:02)
[2017-05-20] MEDS: LITHIUM CARBONATE 600 MG CAPSULE PO SCH (20:02)
[2017-05-20] MEDS: ZOLPIDEM TARTRATE 10 MG TABLET PO PRN (20:55)
[2017-05-20] MEDS: CIPROFLOXACIN HCL 500 MG TABLET PO SCH (20:59)
[2017-05-21] MEDS: IBUPROFEN 400 MG TABLET PO PRN ×3 (00:03→20:09)
[2017-05-21 00:07] VITALS: BP 136/86
[2017-05-21] MEDS: HALOPERIDOL 5 MG TABLET PO PRN (00:47)
[2017-05-21] MEDS: ACETAMINOPHEN 325 MG TABLET PO PRN ×2 (05:25→16:15)
[2017-05-21] MEDS: LEVOTHYROXINE SODIUM 75 MCG TABLET PO SCH (06:36)
[2017-05-21] MEDS: LORazepam 0.5 MG TABLET PO SCH ×3 (08:39→16:14)
[2017-05-21] MEDS: DOCUSATE SODIUM 250 MG CAPSULE PO SCH ×2 (08:39→16:14)
[2017-05-21] MEDS: MONTELUKAST SODIUM 10 MG TABLET PO SCH (08:39)
[2017-05-21] MEDS: OMEPRAZOLE 20 MG CAPSULE PO SCH (08:39)
[2017-05-21] MEDS: CIPROFLOXACIN HCL 500 MG TABLET PO SCH ×2 (08:39→16:14)
[2017-05-21] MEDS ORDERED: ALBUTEROL SULFATE HFA 90 MCG/PUFF 8 GM INHALER IH PRN (09:45)
[2017-05-21 10:49] VITALS: BP 142/74
[2017-05-21 13:47] LABS: GLUCOSE,POINT OF CARE 131 MG/DL (70-110)
[2017-05-21 16:10] VITALS: BP 133/71
[2017-05-21 20:05] VITALS: BP 137/88
[2017-05-21] MEDS: LITHIUM CARBONATE 600 MG CAPSULE PO SCH (20:09)
[2017-05-21] MEDS: PROPRANOLOL HCL 10 MG TABLET PO SCH (20:09)
[2017-05-21] MEDS: PRAVASTATIN SODIUM 10 MG TABLET PO SCH (20:09)
[2017-05-22] MEDS: ZOLPIDEM TARTRATE 10 MG TABLET PO PRN (00:25)
[2017-05-22] MEDS: HALOPERIDOL 5 MG TABLET PO PRN ×4 (00:31→20:15)
[2017-05-22 01:03] VITALS: BP 165/105
[2017-05-22] MEDS: LEVOTHYROXINE SODIUM 75 MCG TABLET PO SCH (07:05)
[2017-05-22] MEDS: DOCUSATE SODIUM 250 MG CAPSULE PO SCH ×2 (09:03→16:09)
[2017-05-22] MEDS: OMEPRAZOLE 20 MG CAPSULE PO SCH (09:03)
[2017-05-22] MEDS: MONTELUKAST SODIUM 10 MG TABLET PO SCH (09:04)
[2017-05-22] MEDS: IBUPROFEN 400 MG TABLET PO PRN (09:07)
[2017-05-22] MEDS: CIPROFLOXACIN HCL 500 MG TABLET PO SCH ×2 (09:07→16:09)
[2017-05-22 09:28] VITALS: BP 123/54
[2017-05-22 09:51] VITALS: BP 140/87
[2017-05-22 10:09] VITALS: BP 139/80
[2017-05-22] MEDS ORDERED: DENTURE ADHESIVE 68 GM CREAM DT PRN (12:30)
[2017-05-22] MEDS: ACETAMINOPHEN 325 MG TABLET PO PRN (14:03)
[2017-05-22] MEDS: LITHIUM CARBONATE 600 MG CAPSULE PO SCH (20:16)
[2017-05-22] MEDS: PROPRANOLOL HCL 10 MG TABLET PO SCH (20:16)
[2017-05-22] MEDS: PRAVASTATIN SODIUM 10 MG TABLET PO SCH (20:17)
[2017-05-22 20:29] VITALS: BP 161/75
[2017-05-23] MEDS: IBUPROFEN 400 MG TABLET PO PRN (00:30)
[2017-05-23 00:31] VITALS: BP 139/104
[2017-05-23] MEDS: HALOPERIDOL 5 MG TABLET PO PRN ×3 (01:27→19:35)
[2017-05-23] MEDS: LEVOTHYROXINE SODIUM 75 MCG TABLET PO SCH (06:55)
[2017-05-23] MEDS: OMEPRAZOLE 20 MG CAPSULE PO SCH (08:03)
[2017-05-23] MEDS: DOCUSATE SODIUM 250 MG CAPSULE PO SCH ×2 (08:03→16:52)
[2017-05-23] MEDS: MONTELUKAST SODIUM 10 MG TABLET PO SCH (08:04)
[2017-05-23] MEDS: CIPROFLOXACIN HCL 500 MG TABLET PO SCH ×2 (08:04→16:52)
[2017-05-23 08:15] VITALS: BP 129/88
[2017-05-23] MEDS ORDERED: LORazepam 2 MG/ML VIAL IM ONE (09:45)
[2017-05-23] MEDS: CARBIDOPA/LEVODOPA 25-100 MG TABLET PO SCH ×2 (13:02→16:52)
[2017-05-23 19:15] VITALS: BP 123/87
[2017-05-23] MEDS: PRAVASTATIN SODIUM 10 MG TABLET PO SCH (20:29)
[2017-05-23] MEDS: PROPRANOLOL HCL 10 MG TABLET PO SCH (20:29)
[2017-05-23] MEDS: ZOLPIDEM TARTRATE 10 MG TABLET PO SCH (20:30)
[2017-05-23] MEDS: LITHIUM CARBONATE 600 MG CAPSULE PO SCH (20:30)
[2017-05-24] VITALS (7 sets, daily range): BP systolic 129–149; BP diastolic 59–88
[2017-05-24] MEDS: IBUPROFEN 400 MG TABLET PO PRN ×2 (02:02→12:39)
[2017-05-24] MEDS: HALOPERIDOL 5 MG TABLET PO PRN ×3 (02:38→23:48)
[2017-05-24] MEDS: ACETAMINOPHEN 325 MG TABLET PO PRN ×3 (04:41→19:13)
[2017-05-24 06:26] LABS: LITHIUM 0.98 mmol/L (0.60-1.20)
[2017-05-24] MEDS: LEVOTHYROXINE SODIUM 75 MCG TABLET PO SCH (06:26)
[2017-05-24] MEDS: CIPROFLOXACIN HCL 500 MG TABLET PO SCH ×2 (08:32→15:49)
[2017-05-24] MEDS: CARBIDOPA/LEVODOPA 25-100 MG TABLET PO SCH ×3 (08:33→15:49)
[2017-05-24] MEDS: DOCUSATE SODIUM 250 MG CAPSULE PO SCH ×2 (08:33→15:49)
[2017-05-24] MEDS: OMEPRAZOLE 20 MG CAPSULE PO SCH (08:33)
[2017-05-24] MEDS: MONTELUKAST SODIUM 10 MG TABLET PO SCH (08:34)
[2017-05-24 10:05] LABS: ANION GAP 11 mmol/L (8-16); CALCIUM, TOTAL 9.2 mg/dL (8.8-10.5); CARBON DIOXIDE 24 mmol/L (22-29); CHLORIDE 106 mmol/L (98-107); CREATININE 0.92 mg/dL (0.60-1.30); GLOMERULAR FILTR. RATE CALC > 60 mL/min (>60); POTASSIUM 3.6 mmol/L (3.5-5.1); SODIUM SERUM 141 mmol/L (136-145); UREA NITROGEN, BLOOD 6 mg/dL (7-18)
[2017-05-24 10:13] LABS: BASOPHILS % (AUTO) 0.8 % (0.0-2.0); EOSINOPHILS % (AUTO) 1.7 % (1.0-6.0); HEMATOCRIT 37.4 % (36-46); HEMOGLOBIN 12.5 g/dL (12.0-16.0); LYMPHOCYTES # (AUTO) 1.4 K/uL (1.0-4.8); LYMPHOCYTES % (AUTO) 17.4 % (22.0-44.0); MEAN CORPUSCULAR HEMOGLOBIN 30.1 pg (26.0-34.0); MEAN CORPUSCULAR HGB CONC 33.5 G/dL (31.0-37.0); MEAN CORPUSCULAR VOLUME 90 fL (80-100); MONOCYTES # (AUTO) 0.9 K/uL (0.1-1.0); MONOCYTES % (AUTO) 10.7 % (2.0-9.0); NEUTROPHILS # (AUTO) 5.7 K/uL (1.8-7.7); NEUTROPHILS % (AUTO) 69.4 % (40.0-70.0); PLATELET COUNT (AUTO) 290 K/uL (150-450); RED BLOOD CELL COUNT(AUTO) 4.16 MIL/uL (4.00-5.20); WHITE BLOOD COUNT (AUTO) 8.2 K/uL (4.5-11.0)
[2017-05-24] MEDS: ZOLPIDEM TARTRATE 10 MG TABLET PO SCH ×2 (19:47→20:26)
[2017-05-24] MEDS: PROPRANOLOL HCL 10 MG TABLET PO SCH (19:47)
[2017-05-24] MEDS: LITHIUM CARBONATE 600 MG CAPSULE PO SCH ×2 (19:47→20:27)
[2017-05-24] MEDS: PRAVASTATIN SODIUM 10 MG TABLET PO SCH (19:47)
[2017-05-25 00:17] VITALS: BP 142/82
[2017-05-25] MEDS: IBUPROFEN 400 MG TABLET PO PRN ×2 (00:19→19:09)
[2017-05-25] MEDS: LEVOTHYROXINE SODIUM 75 MCG TABLET PO SCH (06:14)
[2017-05-25] MEDS: OMEPRAZOLE 20 MG CAPSULE PO SCH (09:04)
[2017-05-25] MEDS: CARBIDOPA/LEVODOPA 25-100 MG TABLET PO SCH ×3 (09:04→16:26)
[2017-05-25] MEDS: DOCUSATE SODIUM 250 MG CAPSULE PO SCH ×3 (09:04→16:27)
[2017-05-25] MEDS: MONTELUKAST SODIUM 10 MG TABLET PO SCH (09:05)
[2017-05-25] MEDS: CIPROFLOXACIN HCL 500 MG TABLET PO SCH ×2 (09:07→16:25)
[2017-05-25 09:09] VITALS: BP 159/88
[2017-05-25 11:20] VITALS: BP 123/61
[2017-05-25] MEDS: ACETAMINOPHEN 325 MG TABLET PO PRN (11:48)
[2017-05-25 16:21] VITALS: BP 132/87
[2017-05-25] MEDS: HALOPERIDOL 5 MG TABLET PO PRN (19:12)
[2017-05-25] MEDS: PROPRANOLOL HCL 10 MG TABLET PO SCH (21:24)
[2017-05-25] MEDS: LITHIUM CARBONATE 600 MG CAPSULE PO SCH (21:24)
[2017-05-25] MEDS: PRAVASTATIN SODIUM 10 MG TABLET PO SCH (21:24)
[2017-05-25] MEDS: ZOLPIDEM TARTRATE 10 MG TABLET PO SCH (21:24)
[2017-05-26] MEDS: HALOPERIDOL 5 MG TABLET PO PRN ×3 (00:04→16:20)
[2017-05-26 05:36] VITALS: BP 133/64
[2017-05-26] MEDS: LEVOTHYROXINE SODIUM 75 MCG TABLET PO SCH (07:04)
[2017-05-26 08:25] VITALS: BP 132/68
[2017-05-26] MEDS: DOCUSATE SODIUM 250 MG CAPSULE PO SCH ×2 (09:00→16:19)
[2017-05-26] MEDS: CARBIDOPA/LEVODOPA 25-100 MG TABLET PO SCH ×3 (09:19→16:19)
[2017-05-26] MEDS: OMEPRAZOLE 20 MG CAPSULE PO SCH (09:19)
[2017-05-26] MEDS: CIPROFLOXACIN HCL 500 MG TABLET PO SCH ×2 (09:19→16:19)
[2017-05-26] MEDS: MONTELUKAST SODIUM 10 MG TABLET PO SCH (09:20)
[2017-05-26] MEDS: IBUPROFEN 400 MG TABLET PO PRN (09:20)
[2017-05-26 17:08] VITALS: BP 142/78
[2017-05-26] MEDS: PROPRANOLOL HCL 10 MG TABLET PO SCH (21:00)
[2017-05-26] MEDS: ZOLPIDEM TARTRATE 10 MG TABLET PO SCH (21:00)
[2017-05-26] MEDS: LITHIUM CARBONATE 600 MG CAPSULE PO SCH (21:00)
[2017-05-26] MEDS: PRAVASTATIN SODIUM 10 MG TABLET PO SCH (21:00)
[2017-05-27 02:25] VITALS: BP 130/78
[2017-05-27] MEDS: IBUPROFEN 400 MG TABLET PO PRN ×2 (02:27→15:12)
[2017-05-27] MEDS: LEVOTHYROXINE SODIUM 75 MCG TABLET PO SCH (06:41)
[2017-05-27 08:29] VITALS: BP 106/62
[2017-05-27] MEDS: DOCUSATE SODIUM 250 MG CAPSULE PO SCH ×2 (08:39→15:52)
[2017-05-27] MEDS: OMEPRAZOLE 20 MG CAPSULE PO SCH (08:39)
[2017-05-27] MEDS: MONTELUKAST SODIUM 10 MG TABLET PO SCH (08:39)
[2017-05-27] MEDS: CIPROFLOXACIN HCL 500 MG TABLET PO SCH ×2 (08:39→15:52)
[2017-05-27] MEDS: CARBIDOPA/LEVODOPA 25-100 MG TABLET PO SCH ×3 (08:39→15:52)
[2017-05-27] MEDS ORDERED: PALIPERIDONE PALMITATE 156 MG/ML SYRINGE IM SCH (09:00)
[2017-05-27] MEDS ORDERED: DENTURE ADHESIVE 68 GM CREAM DT PRN (10:45)
[2017-05-27 15:12] VITALS: BP 143/74
[2017-05-27] MEDS: HALOPERIDOL 5 MG TABLET PO PRN ×2 (15:53→20:09)
[2017-05-27 16:15] VITALS: BP 140/70
[2017-05-27 19:18] VITALS: BP 135/75
[2017-05-27] MEDS: ACETAMINOPHEN 325 MG TABLET PO PRN (19:18)
[2017-05-27] MEDS: PRAVASTATIN SODIUM 10 MG TABLET PO SCH (20:43)
[2017-05-27] MEDS: PROPRANOLOL HCL 10 MG TABLET PO SCH (20:43)
[2017-05-27] MEDS: LITHIUM CARBONATE 600 MG CAPSULE PO SCH (20:43)
[2017-05-27] MEDS: ZOLPIDEM TARTRATE 10 MG TABLET PO SCH (20:43)
[2017-05-28 01:22] VITALS: BP 119/59
[2017-05-28] MEDS: HALOPERIDOL 5 MG TABLET PO PRN ×2 (03:22→16:15)
[2017-05-28] MEDS: LEVOTHYROXINE SODIUM 75 MCG TABLET PO SCH (06:40)
[2017-05-28] MEDS: DOCUSATE SODIUM 250 MG CAPSULE PO SCH ×2 (08:18→16:15)
[2017-05-28] MEDS: CARBIDOPA/LEVODOPA 25-100 MG TABLET PO SCH ×3 (08:18→16:15)
[2017-05-28] MEDS: MONTELUKAST SODIUM 10 MG TABLET PO SCH (08:18)
[2017-05-28] MEDS: OMEPRAZOLE 20 MG CAPSULE PO SCH (08:18)
[2017-05-28 08:28] VITALS: BP 106/81
[2017-05-28] MEDS: IBUPROFEN 400 MG TABLET PO PRN (14:02)
[2017-05-28 16:08] VITALS: BP 132/62
[2017-05-28] MEDS: PROPRANOLOL HCL 10 MG TABLET PO SCH (20:26)
[2017-05-28] MEDS: PRAVASTATIN SODIUM 10 MG TABLET PO SCH (20:26)
[2017-05-28] MEDS: LITHIUM CARBONATE 600 MG CAPSULE PO SCH (20:26)
[2017-05-28] MEDS: ZOLPIDEM TARTRATE 10 MG TABLET PO SCH (20:26)
[2017-05-29] MEDS: IBUPROFEN 400 MG TABLET PO PRN (06:33)
[2017-05-29 06:40] VITALS: BP 104/45
[2017-05-29] MEDS: LEVOTHYROXINE SODIUM 75 MCG TABLET PO SCH (06:46)
[2017-05-29 08:00] VITALS: BP 109/59
[2017-05-29] MEDS: MONTELUKAST SODIUM 10 MG TABLET PO SCH (08:42)
[2017-05-29] MEDS: OMEPRAZOLE 20 MG CAPSULE PO SCH (08:42)
[2017-05-29] MEDS: CARBIDOPA/LEVODOPA 25-100 MG TABLET PO SCH ×3 (08:42→16:17)
[2017-05-29] MEDS: DOCUSATE SODIUM 250 MG CAPSULE PO SCH ×2 (09:00→16:16)
[2017-05-29] MEDS: ACETAMINOPHEN 325 MG TABLET PO PRN ×2 (10:46→19:59)
[2017-05-29 17:34] VITALS: BP 131/77
[2017-05-29 19:58] VITALS: BP 123/78
[2017-05-29] MEDS: PROPRANOLOL HCL 10 MG TABLET PO SCH (20:19)
[2017-05-29] MEDS: PRAVASTATIN SODIUM 10 MG TABLET PO SCH (20:19)
[2017-05-29] MEDS: ZOLPIDEM TARTRATE 10 MG TABLET PO SCH (20:21)
[2017-05-29] MEDS: LITHIUM CARBONATE 600 MG CAPSULE PO SCH (20:21)
[2017-05-30] MEDS: HALOPERIDOL 5 MG TABLET PO PRN ×3 (00:03→15:53)
[2017-05-30 00:30] VITALS: BP 133/69
[2017-05-30] MEDS: IBUPROFEN 400 MG TABLET PO PRN (02:15)
[2017-05-30] MEDS: LEVOTHYROXINE SODIUM 75 MCG TABLET PO SCH (06:41)
[2017-05-30] MEDS: MONTELUKAST SODIUM 10 MG TABLET PO SCH (07:48)
[2017-05-30] MEDS: DOCUSATE SODIUM 250 MG CAPSULE PO SCH ×2 (07:48→15:53)
[2017-05-30] MEDS: CARBIDOPA/LEVODOPA 25-100 MG TABLET PO SCH ×3 (07:48→15:53)
[2017-05-30] MEDS: OMEPRAZOLE 20 MG CAPSULE PO SCH (07:49)
[2017-05-30 08:30] VITALS: BP 142/88
[2017-05-30 17:19] VITALS: BP 129/78
[2017-05-30 20:04] VITALS: BP 132/70
[2017-05-30] MEDS: LITHIUM CARBONATE 600 MG CAPSULE PO SCH (20:06)
[2017-05-30] MEDS: ZOLPIDEM TARTRATE 10 MG TABLET PO SCH (20:06)
[2017-05-30] MEDS: PRAVASTATIN SODIUM 10 MG TABLET PO SCH (20:06)
[2017-05-30] MEDS: PROPRANOLOL HCL 10 MG TABLET PO SCH (20:06)
[2017-05-30] MEDS: ACETAMINOPHEN 325 MG TABLET PO PRN (20:07)
[2017-05-31] MEDS: IBUPROFEN 400 MG TABLET PO PRN ×2 (01:07→09:40)
[2017-05-31 01:09] VITALS: BP 141/83
[2017-05-31] MEDS: LEVOTHYROXINE SODIUM 75 MCG TABLET PO SCH (06:39)
[2017-05-31 08:30] VITALS: BP 136/81
[2017-05-31] MEDS: OMEPRAZOLE 20 MG CAPSULE PO SCH (08:57)
[2017-05-31] MEDS: DOCUSATE SODIUM 250 MG CAPSULE PO SCH ×2 (08:57→16:38)
[2017-05-31] MEDS: CARBIDOPA/LEVODOPA 25-100 MG TABLET PO SCH ×3 (08:57→16:38)
[2017-05-31] MEDS: MONTELUKAST SODIUM 10 MG TABLET PO SCH (08:58)
[2017-05-31 09:38] VITALS: BP 128/78
[2017-05-31 10:38] VITALS: BP 119/69
[2017-05-31 16:22] VITALS: BP 138/59
[2017-05-31] MEDS: HALOPERIDOL 5 MG TABLET PO PRN (16:38)
[2017-05-31] MEDS: LITHIUM CARBONATE 600 MG CAPSULE PO SCH (20:13)
[2017-05-31] MEDS: ZOLPIDEM TARTRATE 10 MG TABLET PO SCH (20:13)
[2017-05-31] MEDS: PROPRANOLOL HCL 10 MG TABLET PO SCH (20:14)
[2017-05-31] MEDS: PRAVASTATIN SODIUM 10 MG TABLET PO SCH (20:14)
[2017-06-01 02:43] VITALS: BP 154/67
[2017-06-01] MEDS: HALOPERIDOL 5 MG TABLET PO PRN ×3 (02:43→17:25)
[2017-06-01 03:30] VITALS: BP 133/91
[2017-06-01] MEDS: IBUPROFEN 400 MG TABLET PO PRN ×2 (03:33→18:14)
[2017-06-01] MEDS: LEVOTHYROXINE SODIUM 75 MCG TABLET PO SCH (06:29)
[2017-06-01] MEDS: OMEPRAZOLE 20 MG CAPSULE PO SCH (09:01)
[2017-06-01] MEDS: MONTELUKAST SODIUM 10 MG TABLET PO SCH (09:01)
[2017-06-01] MEDS: DOCUSATE SODIUM 250 MG CAPSULE PO SCH ×2 (09:01→17:25)
[2017-06-01] MEDS: CARBIDOPA/LEVODOPA 25-100 MG TABLET PO SCH ×3 (09:01→17:25)
[2017-06-01 09:07] VITALS: BP 143/71
[2017-06-01] MEDS: ACETAMINOPHEN 325 MG TABLET PO PRN (10:30)
[2017-06-01] MEDS: PROPRANOLOL HCL 10 MG TABLET PO SCH (20:20)
[2017-06-01] MEDS: ZOLPIDEM TARTRATE 10 MG TABLET PO SCH (20:21)
[2017-06-01] MEDS: PRAVASTATIN SODIUM 10 MG TABLET PO SCH (20:21)
[2017-06-01] MEDS: LITHIUM CARBONATE 600 MG CAPSULE PO SCH (20:21)
[2017-06-01 21:14] VITALS: BP 135/76
[2017-06-02 00:18] VITALS: BP 133/76
[2017-06-02] MEDS: IBUPROFEN 400 MG TABLET PO PRN ×2 (00:22→16:13)
[2017-06-02] MEDS: HALOPERIDOL 5 MG TABLET PO PRN ×4 (01:13→20:24)
[2017-06-02] MEDS: LEVOTHYROXINE SODIUM 75 MCG TABLET PO SCH (06:16)
[2017-06-02 08:15] VITALS: BP 114/65
[2017-06-02] MEDS: MONTELUKAST SODIUM 10 MG TABLET PO SCH (08:53)
[2017-06-02] MEDS: DOCUSATE SODIUM 250 MG CAPSULE PO SCH ×2 (08:53→16:13)
[2017-06-02] MEDS: CARBIDOPA/LEVODOPA 25-100 MG TABLET PO SCH ×3 (08:53→16:13)
[2017-06-02] MEDS: OMEPRAZOLE 20 MG CAPSULE PO SCH (08:53)
[2017-06-02 16:10] VITALS: BP 130/78
[2017-06-02] MEDS: LITHIUM CARBONATE 600 MG CAPSULE PO SCH (20:23)
[2017-06-02] MEDS: ZOLPIDEM TARTRATE 10 MG TABLET PO SCH (20:23)
[2017-06-02] MEDS: PRAVASTATIN SODIUM 10 MG TABLET PO SCH (20:23)
[2017-06-02] MEDS: PROPRANOLOL HCL 10 MG TABLET PO SCH (20:23)
[2017-06-03] MEDS: HALOPERIDOL 5 MG TABLET PO PRN ×4 (03:31→23:48)
[2017-06-03 03:50] VITALS: BP 131/72
[2017-06-03] MEDS: LEVOTHYROXINE SODIUM 75 MCG TABLET PO SCH (06:43)
[2017-06-03 06:50] VITALS: BP 133/86
[2017-06-03] MEDS: IBUPROFEN 400 MG TABLET PO PRN ×2 (06:51→23:53)
[2017-06-03 08:49] VITALS: BP 116/74
[2017-06-03] MEDS: CARBIDOPA/LEVODOPA 25-100 MG TABLET PO SCH ×3 (10:22→16:02)
[2017-06-03] MEDS: MONTELUKAST SODIUM 10 MG TABLET PO SCH (10:24)
[2017-06-03] MEDS: OMEPRAZOLE 20 MG CAPSULE PO SCH (10:24)
[2017-06-03] MEDS: DOCUSATE SODIUM 250 MG CAPSULE PO SCH ×2 (10:24→16:02)
[2017-06-03 16:15] VITALS: BP 114/68
[2017-06-03] MEDS: ZOLPIDEM TARTRATE 10 MG TABLET PO SCH (20:19)
[2017-06-03] MEDS: LITHIUM CARBONATE 600 MG CAPSULE PO SCH (20:19)
[2017-06-03] MEDS: PROPRANOLOL HCL 10 MG TABLET PO SCH (21:49)
[2017-06-03] MEDS: PRAVASTATIN SODIUM 10 MG TABLET PO SCH (21:49)
[2017-06-03 23:50] VITALS: BP 127/74
[2017-06-04 00:05] VITALS: BP 133/78
[2017-06-04] MEDS: HALOPERIDOL 5 MG TABLET PO PRN ×3 (05:15→16:18)
[2017-06-04] MEDS: LEVOTHYROXINE SODIUM 75 MCG TABLET PO SCH (06:34)
[2017-06-04] MEDS: IBUPROFEN 400 MG TABLET PO PRN (08:22)
[2017-06-04 08:23] VITALS: BP 140/74
[2017-06-04] MEDS: DOCUSATE SODIUM 250 MG CAPSULE PO SCH ×2 (08:23→16:18)
[2017-06-04] MEDS: CARBIDOPA/LEVODOPA 25-100 MG TABLET PO SCH ×3 (08:23→16:18)
[2017-06-04] MEDS: OMEPRAZOLE 20 MG CAPSULE PO SCH (08:23)
[2017-06-04] MEDS: MONTELUKAST SODIUM 10 MG TABLET PO SCH (08:23)
[2017-06-04 20:00] VITALS: BP 118/68
[2017-06-04] MEDS: PROPRANOLOL HCL 10 MG TABLET PO SCH (20:03)
[2017-06-04] MEDS: PRAVASTATIN SODIUM 10 MG TABLET PO SCH (20:03)
[2017-06-04] MEDS: LITHIUM CARBONATE 600 MG CAPSULE PO SCH (20:03)
[2017-06-04] MEDS: ZOLPIDEM TARTRATE 10 MG TABLET PO SCH (20:03)
[2017-06-05 01:13] VITALS: BP 128/87
[2017-06-05] MEDS: HALOPERIDOL 5 MG TABLET PO PRN ×3 (01:56→16:03)
[2017-06-05] MEDS: LEVOTHYROXINE SODIUM 75 MCG TABLET PO SCH (06:15)
[2017-06-05] MEDS: OMEPRAZOLE 20 MG CAPSULE PO SCH (08:01)
[2017-06-05] MEDS: CARBIDOPA/LEVODOPA 25-100 MG TABLET PO SCH ×3 (08:01→16:03)
[2017-06-05] MEDS: MONTELUKAST SODIUM 10 MG TABLET PO SCH (08:01)
[2017-06-05] MEDS: DOCUSATE SODIUM 250 MG CAPSULE PO SCH ×2 (08:01→16:03)
[2017-06-05 09:14] VITALS: BP 88/44
[2017-06-05] MEDS: IBUPROFEN 400 MG TABLET PO PRN (14:34)
[2017-06-05 17:12] VITALS: BP 131/53
[2017-06-05] MEDS: PRAVASTATIN SODIUM 10 MG TABLET PO SCH (20:13)
[2017-06-05] MEDS: PROPRANOLOL HCL 10 MG TABLET PO SCH (20:13)
[2017-06-05] MEDS: ZOLPIDEM TARTRATE 10 MG TABLET PO SCH (20:13)
[2017-06-05] MEDS: LITHIUM CARBONATE 600 MG CAPSULE PO SCH (20:13)
[2017-06-06 02:00] VITALS: BP 132/92
[2017-06-06] MEDS: HALOPERIDOL 5 MG TABLET PO PRN ×4 (02:09→20:15)
[2017-06-06] MEDS: LEVOTHYROXINE SODIUM 75 MCG TABLET PO SCH (06:45)
[2017-06-06] MEDS: DOCUSATE SODIUM 250 MG CAPSULE PO SCH ×2 (08:19→16:08)
[2017-06-06] MEDS: MONTELUKAST SODIUM 10 MG TABLET PO SCH (08:19)
[2017-06-06] MEDS: OMEPRAZOLE 20 MG CAPSULE PO SCH (08:19)
[2017-06-06] MEDS: CARBIDOPA/LEVODOPA 25-100 MG TABLET PO SCH ×3 (08:19→16:08)
[2017-06-06 08:29] VITALS: BP 102/71
[2017-06-06 16:29] VITALS: BP 124/61
[2017-06-06] MEDS: LITHIUM CARBONATE 600 MG CAPSULE PO SCH (20:14)
[2017-06-06] MEDS: PRAVASTATIN SODIUM 10 MG TABLET PO SCH (20:14)
[2017-06-06] MEDS: PROPRANOLOL HCL 10 MG TABLET PO SCH (20:14)
[2017-06-06] MEDS: ZOLPIDEM TARTRATE 10 MG TABLET PO SCH (20:14)
[2017-06-07] MEDS: HALOPERIDOL 5 MG TABLET PO PRN ×3 (02:31→13:02)
[2017-06-07 03:33] VITALS: BP 147/70
[2017-06-07] MEDS: LEVOTHYROXINE SODIUM 75 MCG TABLET PO SCH (06:21)
[2017-06-07 08:30] VITALS: BP 134/86
[2017-06-07] MEDS: CARBIDOPA/LEVODOPA 25-100 MG TABLET PO SCH ×2 (09:10→13:02)
[2017-06-07] MEDS: OMEPRAZOLE 20 MG CAPSULE PO SCH (09:10)
[2017-06-07] MEDS: MONTELUKAST SODIUM 10 MG TABLET PO SCH (09:10)
[2017-06-07] MEDS: DOCUSATE SODIUM 250 MG CAPSULE PO SCH (09:10)
[2017-06-07] MEDS ORDERED: ZOLP10TA7 PO (13:27)
[2017-06-07] MEDS ORDERED: CARB-101 PO (13:27)
== END 2017-06-07 15:15 | disposition home or self-care (01) | DRG 750 ==
LOC: B2S 15:40 → 3EI 05-21 23:25
PROVIDERS: ADMIT Psychiatry & Neurology Psychiatry; ATTEND Psychiatry & Neurology Psychiatry
DX: F25.9 Schizoaffective disorder, unspecified (principal); F22 Delusional disorders; R45.851 Suicidal ideations; I10 Essential (primary) hypertension; E03.9 Hypothyroidism, unspecified; E78.5 Hyperlipidemia, unspecified; J44.9 Chronic obstructive pulmonary disease, unspecified; K21.9 Gastro-esophageal reflux disease without esophagitis; K59.09 Other constipation; Z82.49 Family history of ischemic heart disease and other diseases of the circulatory system; Z28.21 Immunization not carried out because of patient refusal
CPT/HCPCS: 70551; 82962; 83036; 84439; 84443; 87081; 87086; 90471; J2060; J3535; Q0162

== ENCOUNTER 2017-05-17 10:39 | Emergency (ER) | payer MEDICAID, OTHER ==
[~2017-05-17] VITALS: Ht 175.3 cm; Wt 90.9 kg
[~2017-05-17 10:39] MED LIST changes: -LEVO50TA11 PO; +LEVO75 PO
[2017-05-17 11:17] LABS: GLUCOSE,POINT OF CARE 111 MG/DL (70-110)
[2017-05-17] MEDS ORDERED: ACETAMINOPHEN 325 MG TABLET PO ONE (11:45)
[2017-05-17 12:19] LABS: ANION GAP 9 mmol/L (8-16); CALCIUM, TOTAL 9.3 mg/dL (8.8-10.5); CARBON DIOXIDE 26 mmol/L (22-29); CHLORIDE 103 mmol/L (98-107); CREATININE 0.82 mg/dL (0.60-1.30); GLOMERULAR FILTR. RATE CALC > 60 mL/min (>60); POTASSIUM 3.8 mmol/L (3.5-5.1); SODIUM SERUM 138 mmol/L (136-145); UREA NITROGEN, BLOOD 12 mg/dL (7-18)
[2017-05-17 12:26] LABS: ALANINE AMINOTRANSFERASE 29 U/L (12-78); ALBUMIN 4.2 g/dL (3.4-5.0); ASPARTATE AMINOTRANSFERASE 19 U/L (15-37); BILIRUBIN,TOTAL 0.3 mg/dL (0.1-1.0); TOTAL PROTEIN, SERUM 8.1 g/dL (6.4-8.2)
[2017-05-17] MEDS ORDERED: HALOPERIDOL LACTATE 5 MG/ML VIAL IM ONE (12:30)
[2017-05-17] MEDS ORDERED: LORazepam 2 MG/ML VIAL IM ONE (12:30)
[2017-05-17] MEDS ORDERED: DiphenhydrAMINE HCL 50 MG/ML VIAL IM ONE (12:30)
[2017-05-17 12:35] LABS: BASOPHILS # (AUTO) 0.04 K/uL (0.00-0.20); BASOPHILS % (AUTO) 0.4 % (0.0-2.0); EOSINOPHILS # (AUTO) 0.03 K/uL (0.00-0.70); EOSINOPHILS % (AUTO) 0.32 % (1.0-6.0); HEMOGLOBIN 13.5 g/dL (12.0-16.0); LYMPHOCYTES # (AUTO) 1.7 K/uL (1.0-4.8); LYMPHOCYTES % (AUTO) 17.5 % (22.0-44.0); MEAN CORPUSCULAR HEMOGLOBIN 29.9 pg (26.0-34.0); MEAN CORPUSCULAR HGB CONC 32.8 G/dL (31.0-37.0); MEAN CORPUSCULAR VOLUME 91 fL (80-100); MONOCYTES # (AUTO) 0.7 K/uL (0.1-1.0); MONOCYTES % (AUTO) 7.5 % (2.0-9.0); NEUTROPHILS # (AUTO) 7.1 K/uL (1.8-7.7); NEUTROPHILS % (AUTO) 74.3 % (40.0-70.0); PLATELET COUNT (AUTO) 302 K/uL (150-450); RED BLOOD CELL COUNT(AUTO) 4.51 MIL/uL (4.00-5.20); RED CELL DISTRIBUTION WIDTH 13.6 % (11.5-14.5); WHITE BLOOD COUNT (AUTO) 9.6 K/uL (4.5-11.0)
[2017-05-17 15:09] VITALS: BP 125/81
== END 2017-05-17 15:45 | disposition home or self-care (01) ==
LOC: EMS 10:40
DX: F20.9 Schizophrenia, unspecified (principal); K59.00 Constipation, unspecified; F32.9 Major depressive disorder, single episode, unspecified; E03.9 Hypothyroidism, unspecified; K21.9 Gastro-esophageal reflux disease without esophagitis; J44.9 Chronic obstructive pulmonary disease, unspecified; Z02.89 Encounter for other administrative examinations; Z76.0 Encounter for issue of repeat prescription
CPT/HCPCS: 36415; 74000; 80053; 82962; 85025; 96372; 99285; G0480; J1200; J1630; J2060

== ENCOUNTER 2017-06-07 15:48 | Inpatient (IN) | payer MEDICAID, OTHER ==
[~2017-06-07] VITALS: Ht 162.6 cm; Wt 98.4 kg
[~2017-06-07 15:48] MED LIST changes: +CARB-101 PO; +ZOLP10TA7 PO
[2017-06-07 16:36] LABS: BASOPHILS % (AUTO) 0.7 % (0.0-2.0); EOSINOPHILS % (AUTO) 1.3 % (1.0-6.0); HEMATOCRIT 36.3 % (36-46); HEMOGLOBIN 12.3 g/dL (12.0-16.0); LYMPHOCYTES # (AUTO) 1.6 K/uL (1.0-4.8); LYMPHOCYTES % (AUTO) 21.8 % (22.0-44.0); MEAN CORPUSCULAR HEMOGLOBIN 30.9 pg (26.0-34.0); MEAN CORPUSCULAR HGB CONC 33.9 G/dL (31.0-37.0); MEAN CORPUSCULAR VOLUME 91 fL (80-100); MONOCYTES # (AUTO) 0.8 K/uL (0.1-1.0); MONOCYTES % (AUTO) 10.8 % (2.0-9.0); NEUTROPHILS # (AUTO) 4.8 K/uL (1.8-7.7); NEUTROPHILS % (AUTO) 65.4 % (40.0-70.0); PLATELET COUNT (AUTO) 281 K/uL (150-450); RED BLOOD CELL COUNT(AUTO) 3.98 MIL/uL (4.00-5.20); RED CELL DISTRIBUTION WIDTH 14.3 % (11.5-14.5); WHITE BLOOD COUNT (AUTO) 7.3 K/uL (4.5-11.0)
[2017-06-07 16:40] LABS: ANION GAP 8 mmol/L (8-16); CALCIUM, TOTAL 9.4 mg/dL (8.8-10.5); CARBON DIOXIDE 26 mmol/L (22-29); CHLORIDE 105 mmol/L (98-107); CREATININE 0.69 mg/dL (0.60-1.30); GLOMERULAR FILTR. RATE CALC > 60 mL/min (>60); POTASSIUM 3.4 mmol/L (3.5-5.1); SODIUM SERUM 139 mmol/L (136-145); UREA NITROGEN, BLOOD 11 mg/dL (7-18)
[2017-06-07 16:54] LABS: ALANINE AMINOTRANSFERASE 9 U/L (12-78); ALBUMIN 3.7 g/dL (3.4-5.0); ASPARTATE AMINOTRANSFERASE 16 U/L (15-37); BILIRUBIN,TOTAL 0.3 mg/dL (0.1-1.0); THYROID STIMULATING HORMONE 2.88 uIU/mL (0.36-3.74)
[2017-06-07 17:06] LABS: LITHIUM 0.42 mmol/L (0.60-1.20)
[2017-06-07] MEDS ORDERED: BACITRACIN 0.9 GM PACKET OINTMENT TP ONE (18:15)
[2017-06-07] MEDS ORDERED: SODIUM CHLORIDE 0.9% 250 ML IRRIG SOLUTION BOTTLE IRRIG ONE (18:15)
[2017-06-07] MEDS ORDERED: PERTUSS(ACELL),DIPH,TET VAC/PF 0.5 ML VIAL IM ONE (18:15)
[2017-06-07] MEDS ORDERED: ZOLPIDEM TARTRATE 10 MG TABLET PO PRN (18:15)
[2017-06-07] MEDS ORDERED: ACETAMINOPHEN 500 MG TABLET PO ONE (19:00)
[2017-06-07] MEDS: LORazepam 2 MG TABLET PO PRN (22:18)
[2017-06-08] MEDS: HALOPERIDOL 5 MG TABLET PO PRN ×2 (10:04→22:09)
[2017-06-08] MEDS: LORazepam 2 MG TABLET PO PRN (10:04)
[2017-06-08] MEDS ORDERED: ACETAMINOPHEN 325 MG TABLET PO ONE (15:15)
[2017-06-08] MEDS ORDERED: LORazepam 1 MG TABLET PO ONE (18:15)
[2017-06-08] MEDS ORDERED: ZOLPIDEM TARTRATE 5 MG TABLET PO ONE (20:15)
[2017-06-08] MEDS ORDERED: ZOLPIDEM TARTRATE 10 MG TABLET PO ONE (20:15)
[2017-06-09 01:11] VITALS: BP 144/67
[2017-06-09 05:41] VITALS: BP 120/74
[2017-06-09 07:22] VITALS: BP 104/77
[2017-06-09] MEDS: BACITRACIN 28.4 GM OINTMENT TP SCH (10:21)
[2017-06-09 10:33] VITALS: BP 112/78
[2017-06-09] MEDS: LORazepam 2 MG TABLET PO PRN ×2 (14:18→19:26)
[2017-06-09] MEDS: CARBIDOPA/LEVODOPA 25-100 MG TABLET PO SCH (16:48)
[2017-06-09] MEDS: DOCUSATE SODIUM 250 MG CAPSULE PO SCH (18:30)
[2017-06-09 18:34] VITALS: BP 138/66
[2017-06-09] MEDS: HALOPERIDOL 5 MG TABLET PO PRN (19:27)
[2017-06-09] MEDS ORDERED: LITHIUM CARBONATE 600 MG CAPSULE PO SCH (21:00)
[2017-06-10 08:30] VITALS: BP 147/58
[2017-06-10] MEDS: CARBIDOPA/LEVODOPA 25-100 MG TABLET PO SCH ×2 (08:43→12:09)
[2017-06-10] MEDS: DOCUSATE SODIUM 250 MG CAPSULE PO SCH (08:43)
[2017-06-10] MEDS: BACITRACIN 28.4 GM OINTMENT TP SCH (08:44)
[2017-06-10] MEDS ORDERED: OMEPRAZOLE 20 MG CAPSULE PO SCH (09:00)
[2017-06-10] MEDS ORDERED: PALI234D IM (12:00)
== END 2017-06-10 14:15 | disposition home or self-care (01) | DRG 753 ==
LOC: EMS 15:49 → UNDOADMIN 19:26 → B2S 19:26 → EMS 06-08 23:19 → AHU 06-08 23:19 → 3EI 06-09 17:15
PROVIDERS: ADMIT Psychiatry & Neurology Psychiatry; ATTEND Psychiatry & Neurology Psychiatry
DX: F31.9 Bipolar disorder, unspecified (principal); F22 Delusional disorders; I10 Essential (primary) hypertension; E03.9 Hypothyroidism, unspecified; E78.5 Hyperlipidemia, unspecified; J44.9 Chronic obstructive pulmonary disease, unspecified; K21.9 Gastro-esophageal reflux disease without esophagitis; K59.09 Other constipation; Z82.49 Family history of ischemic heart disease and other diseases of the circulatory system
CPT/HCPCS: 84132; 84443; 87081; 90471; 90715; 99285; G0480

== ENCOUNTER 2017-06-13 17:12 | Inpatient (IN) | payer MEDICAID, SELFPAY ==
[~2017-06-13] VITALS: Ht 165.1 cm; Wt 97.9 kg
[~2017-06-13 17:12] MED LIST changes: -LEVO75 PO; -MONT10TA21 PO; -PALI156D IM; +PALI234D IM; -PRAV10TA39 PO; -PROP10TA73 PO; -QUET300XR PO; -RANI150T7 PO; -RISP1 PO; -ZOLP10TA7 PO
[2017-06-13] MEDS ORDERED: LORA0.5T2 PO (17:34)
[2017-06-13] MEDS ORDERED: MONT10TA21 PO (17:36)
[2017-06-13] MEDS ORDERED: QUET25TA PO (17:36)
[2017-06-13] MEDS ORDERED: RISP1 PO (17:36)
[2017-06-13] MEDS ORDERED: PROP10TA73 PO (17:36)
[2017-06-13] MEDS ORDERED: ZOLP10TA7 PO (17:36)
[2017-06-13] MEDS ORDERED: PRAV10TA39 PO (17:36)
[2017-06-13] MEDS ORDERED: LEVO50 PO (17:36)
[2017-06-13] MEDS ORDERED: RANI150T7 PO (17:36)
[2017-06-13 17:37] LABS: BASOPHILS # (AUTO) 0.05 K/uL (0.00-0.20); BASOPHILS % (AUTO) 0.4 % (0.0-2.0); EOSINOPHILS # (AUTO) 0.12 K/uL (0.00-0.70); HEMATOCRIT 39.3 % (36-46); HEMOGLOBIN 12.8 g/dL (12.0-16.0); LYMPHOCYTES # (AUTO) 1.8 K/uL (1.0-4.8); LYMPHOCYTES % (AUTO) 16.3 % (22.0-44.0); MEAN CORPUSCULAR HEMOGLOBIN 29.9 pg (26.0-34.0); MEAN CORPUSCULAR HGB CONC 32.6 G/dL (31.0-37.0); MEAN CORPUSCULAR VOLUME 92 fL (80-100); MONOCYTES % (AUTO) 9.6 % (2.0-9.0); NEUTROPHILS # (AUTO) 7.8 K/uL (1.8-7.7); NEUTROPHILS % (AUTO) 72.6 % (40.0-70.0); PLATELET COUNT (AUTO) 289 K/uL (150-450); RED BLOOD CELL COUNT(AUTO) 4.29 MIL/uL (4.00-5.20); RED CELL DISTRIBUTION WIDTH 14.3 % (11.5-14.5); WHITE BLOOD COUNT (AUTO) 10.8 K/uL (4.5-11.0)
[2017-06-13 17:50] LABS: CALCIUM, TOTAL 9.5 mg/dL (8.8-10.5); UREA NITROGEN, BLOOD 12 mg/dL (7-18)
[2017-06-13 18:01] LABS: ANION GAP 12 mmol/L (8-16); CARBON DIOXIDE 23 mmol/L (22-29); CHLORIDE 105 mmol/L (98-107); CREATININE 0.76 mg/dL (0.60-1.30); GLOMERULAR FILTR. RATE CALC > 60 mL/min (>60); POTASSIUM 3.9 mmol/L (3.5-5.1); SODIUM SERUM 140 mmol/L (136-145)
[2017-06-13 18:05] LABS: ALANINE AMINOTRANSFERASE 14 U/L (12-78); ALBUMIN 3.9 g/dL (3.4-5.0); ASPARTATE AMINOTRANSFERASE 32 U/L (15-37); BILIRUBIN,TOTAL 0.3 mg/dL (0.1-1.0)
[2017-06-13] MEDS ORDERED: LORazepam 2 MG TABLET PO ONE (20:30)
[2017-06-13] MEDS ORDERED: HALOPERIDOL 5 MG TABLET PO ONE (20:30)
[2017-06-13] MEDS ORDERED: DiphenhydrAMINE HCL 50 MG CAPSULE PO ONE (20:30)
[2017-06-13] MEDS: LITHIUM CARBONATE 600 MG CAPSULE PO SCH (22:38)
[2017-06-14 02:13] VITALS: BP 129/85
[2017-06-14] MEDS: RANITIDINE HCL 150 MG TABLET PO SCH ×2 (08:49→16:33)
[2017-06-14] MEDS: PRAVASTATIN SODIUM 10 MG TABLET PO SCH (08:49)
[2017-06-14] MEDS: MONTELUKAST SODIUM 10 MG TABLET PO SCH (08:49)
[2017-06-14] MEDS: PROPRANOLOL HCL 10 MG TABLET PO SCH ×2 (08:49→16:34)
[2017-06-14] MEDS: DOCUSATE SODIUM 250 MG CAPSULE PO SCH ×2 (08:49→16:33)
[2017-06-14] MEDS: OMEPRAZOLE 20 MG CAPSULE PO SCH (08:49)
[2017-06-14] MEDS: CARBIDOPA/LEVODOPA 25-100 MG TABLET PO SCH ×3 (08:49→16:34)
[2017-06-14] MEDS: LORazepam 2 MG TABLET PO PRN ×2 (08:49→17:17)
[2017-06-14 09:49] VITALS: BP 132/90
[2017-06-14 18:18] VITALS: BP 121/71
[2017-06-14] MEDS: LITHIUM CARBONATE 600 MG CAPSULE PO SCH (20:59)
[2017-06-14] MEDS: ZOLPIDEM TARTRATE 10 MG TABLET PO PRN (21:00)
[2017-06-15] MEDS: LEVOTHYROXINE SODIUM 50 MCG TABLET PO SCH (06:55)
[2017-06-15 08:05] VITALS: BP 106/64
[2017-06-15 08:06] LABS: APPEARANCE,URINE CLOUDY (CLEAR); GLUCOSE, URINE (UA) NEGATIVE (NEGATIVE); KETONES,URINE NEGATIVE (NEGATIVE); LEUKOCYTE ESTERASE ,URINE LARGE (NEGATIVE); OCCULT BLOOD,URINE NEGATIVE (NEGATIVE); PROTEIN,URINE NEGATIVE (NEGATIVE)
[2017-06-15] MEDS: LORazepam 2 MG TABLET PO PRN ×2 (08:09→16:04)
[2017-06-15] MEDS: OMEPRAZOLE 20 MG CAPSULE PO SCH (08:09)
[2017-06-15] MEDS: RANITIDINE HCL 150 MG TABLET PO SCH ×2 (08:09→16:04)
[2017-06-15] MEDS: DOCUSATE SODIUM 250 MG CAPSULE PO SCH ×2 (08:09→16:04)
[2017-06-15] MEDS: PRAVASTATIN SODIUM 10 MG TABLET PO SCH (08:09)
[2017-06-15] MEDS: PROPRANOLOL HCL 10 MG TABLET PO SCH ×2 (08:09→16:04)
[2017-06-15] MEDS: CARBIDOPA/LEVODOPA 25-100 MG TABLET PO SCH ×3 (08:09→16:05)
[2017-06-15] MEDS: MONTELUKAST SODIUM 10 MG TABLET PO SCH (08:09)
[2017-06-15 08:33] LABS: RBC,URINE 0-2 /HPF (0-2)
[2017-06-15 08:34] LABS: SQUAMOUS EPITHELIAL CELL,UR Few /LPF (None Seen)
[2017-06-15 18:05] VITALS: BP 122/65
[2017-06-15] MEDS: LITHIUM CARBONATE 600 MG CAPSULE PO SCH (20:00)
[2017-06-15] MEDS: ZOLPIDEM TARTRATE 10 MG TABLET PO PRN (20:01)
[2017-06-15] MEDS: ACETAMINOPHEN 325 MG TABLET PO PRN (21:15)
[2017-06-15 21:16] VITALS: BP 123/53
[2017-06-16 06:03] VITALS: BP 113/65
[2017-06-16] MEDS: LEVOTHYROXINE SODIUM 50 MCG TABLET PO SCH (07:00)
[2017-06-16] MEDS: CIPROFLOXACIN HCL 500 MG TABLET PO SCH ×2 (09:03→16:10)
[2017-06-16] MEDS: OMEPRAZOLE 20 MG CAPSULE PO SCH (09:03)
[2017-06-16] MEDS: DOCUSATE SODIUM 250 MG CAPSULE PO SCH ×2 (09:03→16:10)
[2017-06-16] MEDS: CARBIDOPA/LEVODOPA 25-100 MG TABLET PO SCH ×3 (09:03→16:10)
[2017-06-16] MEDS: MONTELUKAST SODIUM 10 MG TABLET PO SCH (09:03)
[2017-06-16] MEDS: PROPRANOLOL HCL 10 MG TABLET PO SCH ×2 (09:04→16:10)
[2017-06-16] MEDS: RANITIDINE HCL 150 MG TABLET PO SCH ×2 (09:04→16:10)
[2017-06-16] MEDS: PRAVASTATIN SODIUM 10 MG TABLET PO SCH (09:05)
[2017-06-16] MEDS: LORazepam 2 MG TABLET PO PRN (09:06)
[2017-06-16 09:40] VITALS: BP 130/79
[2017-06-16] MEDS: LORazepam 1 MG TABLET PO PRN (16:10)
[2017-06-16 16:16] VITALS: BP 132/75
[2017-06-16] MEDS: ZOLPIDEM TARTRATE 10 MG TABLET PO PRN (20:16)
[2017-06-16] MEDS: LITHIUM CARBONATE 600 MG CAPSULE PO SCH (20:16)
[2017-06-16 21:02] VITALS: BP 126/78
[2017-06-16] MEDS: ACETAMINOPHEN 325 MG TABLET PO PRN (21:02)
[2017-06-17 03:40] VITALS: BP 131/78
[2017-06-17] MEDS: LORazepam 1 MG TABLET PO PRN ×3 (03:41→15:57)
[2017-06-17] MEDS: LEVOTHYROXINE SODIUM 50 MCG TABLET PO SCH (07:16)
[2017-06-17 08:31] VITALS: BP 126/93
[2017-06-17] MEDS: CIPROFLOXACIN HCL 500 MG TABLET PO SCH ×2 (09:12→15:59)
[2017-06-17] MEDS: DOCUSATE SODIUM 250 MG CAPSULE PO SCH ×2 (09:13→15:57)
[2017-06-17] MEDS: CARBIDOPA/LEVODOPA 25-100 MG TABLET PO SCH ×3 (09:13→15:57)
[2017-06-17] MEDS: PROPRANOLOL HCL 10 MG TABLET PO SCH ×2 (09:13→17:15)
[2017-06-17] MEDS: PRAVASTATIN SODIUM 10 MG TABLET PO SCH (09:13)
[2017-06-17] MEDS: OMEPRAZOLE 20 MG CAPSULE PO SCH (09:14)
[2017-06-17] MEDS: RANITIDINE HCL 150 MG TABLET PO SCH ×2 (09:14→15:57)
[2017-06-17] MEDS: MONTELUKAST SODIUM 10 MG TABLET PO SCH (09:14)
[2017-06-17] MEDS: DENTURE ADHESIVE 68 GM CREAM DT PRN (09:19)
[2017-06-17] MEDS ORDERED: BENZTROPINE MESYLATE 1 MG/ML 2 ML VIAL IM ONE (10:00)
[2017-06-17 16:27] VITALS: BP 119/60
[2017-06-17] MEDS: LITHIUM CARBONATE 600 MG CAPSULE PO SCH (20:09)
[2017-06-17] MEDS: ZOLPIDEM TARTRATE 10 MG TABLET PO PRN (20:27)
[2017-06-18 05:55] VITALS: BP 111/84
[2017-06-18] MEDS: LEVOTHYROXINE SODIUM 50 MCG TABLET PO SCH (06:45)
[2017-06-18] MEDS: CIPROFLOXACIN HCL 500 MG TABLET PO SCH ×2 (08:27→16:07)
[2017-06-18] MEDS: MONTELUKAST SODIUM 10 MG TABLET PO SCH (08:27)
[2017-06-18] MEDS: LORazepam 1 MG TABLET PO PRN ×2 (08:27→16:09)
[2017-06-18] MEDS: DOCUSATE SODIUM 250 MG CAPSULE PO SCH ×2 (08:27→16:07)
[2017-06-18] MEDS: CARBIDOPA/LEVODOPA 25-100 MG TABLET PO SCH ×3 (08:28→16:07)
[2017-06-18] MEDS: OMEPRAZOLE 20 MG CAPSULE PO SCH (08:28)
[2017-06-18] MEDS: PROPRANOLOL HCL 10 MG TABLET PO SCH ×2 (08:29→16:10)
[2017-06-18] MEDS: RANITIDINE HCL 150 MG TABLET PO SCH ×2 (08:29→16:07)
[2017-06-18] MEDS: PRAVASTATIN SODIUM 10 MG TABLET PO SCH (08:31)
[2017-06-18 09:13] VITALS: BP 125/52
[2017-06-18 17:49] VITALS: BP 117/67
[2017-06-18] MEDS: LITHIUM CARBONATE 600 MG CAPSULE PO SCH (20:04)
[2017-06-18] MEDS: ZOLPIDEM TARTRATE 10 MG TABLET PO PRN (20:50)
[2017-06-19 03:00] VITALS: BP 134/73
[2017-06-19] MEDS: LORazepam 1 MG TABLET PO PRN (03:05)
[2017-06-19] MEDS: HALOPERIDOL 5 MG TABLET PO PRN (03:05)
[2017-06-19] MEDS: LEVOTHYROXINE SODIUM 50 MCG TABLET PO SCH (06:17)
[2017-06-19] MEDS: MONTELUKAST SODIUM 10 MG TABLET PO SCH (09:14)
[2017-06-19] MEDS: DOCUSATE SODIUM 250 MG CAPSULE PO SCH ×2 (09:14→16:20)
[2017-06-19] MEDS: CIPROFLOXACIN HCL 500 MG TABLET PO SCH ×2 (09:14→16:20)
[2017-06-19] MEDS: OMEPRAZOLE 20 MG CAPSULE PO SCH (09:14)
[2017-06-19] MEDS: PRAVASTATIN SODIUM 10 MG TABLET PO SCH (09:15)
[2017-06-19] MEDS: RANITIDINE HCL 150 MG TABLET PO SCH ×2 (09:15→16:20)
[2017-06-19] MEDS: CARBIDOPA/LEVODOPA 25-100 MG TABLET PO SCH ×3 (09:15→16:20)
[2017-06-19] MEDS: PROPRANOLOL HCL 10 MG TABLET PO SCH ×2 (09:15→16:20)
[2017-06-19 10:17] VITALS: BP 122/66
[2017-06-19] MEDS: ACETAMINOPHEN 325 MG TABLET PO PRN (11:15)
[2017-06-19 11:20] VITALS: BP 108/74
[2017-06-19 12:18] VITALS: BP 109/75
[2017-06-19 18:54] VITALS: BP 117/69
[2017-06-19] MEDS: LITHIUM CARBONATE 600 MG CAPSULE PO SCH (20:14)
[2017-06-20 03:20] VITALS: BP 129/70
[2017-06-20] MEDS: HALOPERIDOL 5 MG TABLET PO PRN ×3 (03:23→15:06)
[2017-06-20] MEDS: LORazepam 1 MG TABLET PO PRN ×3 (03:29→15:06)
[2017-06-20] MEDS: LEVOTHYROXINE SODIUM 50 MCG TABLET PO SCH (06:44)
[2017-06-20] MEDS: PRAVASTATIN SODIUM 10 MG TABLET PO SCH (10:07)
[2017-06-20] MEDS: PROPRANOLOL HCL 10 MG TABLET PO SCH ×2 (10:07→16:41)
[2017-06-20] MEDS: CARBIDOPA/LEVODOPA 25-100 MG TABLET PO SCH ×3 (10:07→16:41)
[2017-06-20] MEDS: DOCUSATE SODIUM 250 MG CAPSULE PO SCH ×2 (10:07→16:40)
[2017-06-20] MEDS: OMEPRAZOLE 20 MG CAPSULE PO SCH (10:07)
[2017-06-20] MEDS: CIPROFLOXACIN HCL 500 MG TABLET PO SCH ×2 (10:07→16:40)
[2017-06-20] MEDS: MONTELUKAST SODIUM 10 MG TABLET PO SCH (10:07)
[2017-06-20] MEDS: RANITIDINE HCL 150 MG TABLET PO SCH ×2 (10:07→16:41)
[2017-06-20 12:25] VITALS: BP 123/73
[2017-06-20 16:07] VITALS: BP 123/77
[2017-06-20] MEDS: LITHIUM CARBONATE 600 MG CAPSULE PO SCH (20:12)
[2017-06-20] MEDS: ZOLPIDEM TARTRATE 10 MG TABLET PO PRN (20:12)
[2017-06-21 00:13] VITALS: BP 131/88
[2017-06-21] MEDS: HALOPERIDOL 5 MG TABLET PO PRN ×3 (00:15→19:18)
[2017-06-21] MEDS: LEVOTHYROXINE SODIUM 50 MCG TABLET PO SCH (06:34)
[2017-06-21 08:00] VITALS: BP 129/73
[2017-06-21] MEDS: CIPROFLOXACIN HCL 500 MG TABLET PO SCH ×2 (09:00→16:09)
[2017-06-21] MEDS: OMEPRAZOLE 20 MG CAPSULE PO SCH (09:00)
[2017-06-21] MEDS: CARBIDOPA/LEVODOPA 25-100 MG TABLET PO SCH ×3 (09:01→16:10)
[2017-06-21] MEDS: PROPRANOLOL HCL 10 MG TABLET PO SCH ×2 (09:01→16:09)
[2017-06-21] MEDS: RANITIDINE HCL 150 MG TABLET PO SCH ×2 (09:01→16:09)
[2017-06-21] MEDS: PRAVASTATIN SODIUM 10 MG TABLET PO SCH (09:01)
[2017-06-21] MEDS: MONTELUKAST SODIUM 10 MG TABLET PO SCH (09:01)
[2017-06-21] MEDS: DOCUSATE SODIUM 250 MG CAPSULE PO SCH ×2 (09:01→16:09)
[2017-06-21] MEDS: LITHIUM CARBONATE 600 MG CAPSULE PO SCH (20:30)
[2017-06-21] MEDS: ZOLPIDEM TARTRATE 10 MG TABLET PO PRN (22:41)
[2017-06-21 22:46] VITALS: BP 130/74
[2017-06-22 00:07] VITALS: BP 125/82
[2017-06-22] MEDS: ACETAMINOPHEN 325 MG TABLET PO PRN ×3 (01:20→22:16)
[2017-06-22] MEDS: LEVOTHYROXINE SODIUM 50 MCG TABLET PO SCH (06:29)
[2017-06-22 08:10] VITALS: BP 112/57
[2017-06-22] MEDS: DOCUSATE SODIUM 250 MG CAPSULE PO SCH ×2 (09:23→16:08)
[2017-06-22] MEDS: PROPRANOLOL HCL 10 MG TABLET PO SCH ×2 (09:23→16:08)
[2017-06-22] MEDS: PRAVASTATIN SODIUM 10 MG TABLET PO SCH (09:23)
[2017-06-22] MEDS: CIPROFLOXACIN HCL 500 MG TABLET PO SCH ×2 (09:23→16:08)
[2017-06-22] MEDS: RANITIDINE HCL 150 MG TABLET PO SCH ×2 (09:23→16:08)
[2017-06-22] MEDS: OMEPRAZOLE 20 MG CAPSULE PO SCH (09:23)
[2017-06-22] MEDS: CARBIDOPA/LEVODOPA 25-100 MG TABLET PO SCH ×3 (09:23→16:09)
[2017-06-22] MEDS: MONTELUKAST SODIUM 10 MG TABLET PO SCH (09:23)
[2017-06-22] MEDS: HALOPERIDOL 5 MG TABLET PO PRN ×3 (09:27→13:54)
[2017-06-22] MEDS: DENTURE ADHESIVE 68 GM CREAM DT PRN (09:29)
[2017-06-22 19:18] VITALS: BP 114/61
[2017-06-22] MEDS: ZOLPIDEM TARTRATE 10 MG TABLET PO PRN (20:25)
[2017-06-22] MEDS: LITHIUM CARBONATE 600 MG CAPSULE PO SCH (20:26)
[2017-06-22 22:15] VITALS: BP 124/82
[2017-06-22 23:16] VITALS: BP 117/67
[2017-06-23] MEDS: HALOPERIDOL 5 MG TABLET PO PRN ×3 (01:30→13:11)
[2017-06-23 01:45] VITALS: BP 124/83
[2017-06-23 03:34] VITALS: BP 112/67
[2017-06-23 06:17] VITALS: BP 112/67
[2017-06-23] MEDS: ACETAMINOPHEN 325 MG TABLET PO PRN ×2 (06:19→08:05)
[2017-06-23] MEDS: LEVOTHYROXINE SODIUM 50 MCG TABLET PO SCH ×2 (06:19→06:25)
[2017-06-23 08:00] VITALS: BP 115/70
[2017-06-23] MEDS: CARBIDOPA/LEVODOPA 25-100 MG TABLET PO SCH ×3 (09:16→16:02)
[2017-06-23] MEDS: DOCUSATE SODIUM 250 MG CAPSULE PO SCH ×2 (09:16→16:02)
[2017-06-23] MEDS: MONTELUKAST SODIUM 10 MG TABLET PO SCH (09:16)
[2017-06-23] MEDS: PROPRANOLOL HCL 10 MG TABLET PO SCH ×2 (09:16→16:02)
[2017-06-23] MEDS: OMEPRAZOLE 20 MG CAPSULE PO SCH (09:17)
[2017-06-23] MEDS: RANITIDINE HCL 150 MG TABLET PO SCH ×2 (09:17→16:02)
[2017-06-23] MEDS: PRAVASTATIN SODIUM 10 MG TABLET PO SCH (09:17)
[2017-06-23] MEDS: ZOLPIDEM TARTRATE 10 MG TABLET PO PRN (20:39)
[2017-06-23] MEDS: LITHIUM CARBONATE 600 MG CAPSULE PO SCH (20:39)
[2017-06-23 22:13] VITALS: BP 114/62
[2017-06-24] MEDS: HALOPERIDOL 5 MG TABLET PO PRN ×2 (02:29→13:43)
[2017-06-24] MEDS: LEVOTHYROXINE SODIUM 50 MCG TABLET PO SCH (07:07)
[2017-06-24] MEDS: DOCUSATE SODIUM 250 MG CAPSULE PO SCH ×2 (08:31→16:33)
[2017-06-24] MEDS: PRAVASTATIN SODIUM 10 MG TABLET PO SCH (08:31)
[2017-06-24] MEDS: OMEPRAZOLE 20 MG CAPSULE PO SCH (08:31)
[2017-06-24] MEDS: MONTELUKAST SODIUM 10 MG TABLET PO SCH (08:31)
[2017-06-24] MEDS: CARBIDOPA/LEVODOPA 25-100 MG TABLET PO SCH ×3 (08:32→16:34)
[2017-06-24] MEDS: RANITIDINE HCL 150 MG TABLET PO SCH ×2 (08:32→16:34)
[2017-06-24] MEDS ORDERED: PALIPERIDONE PALMITATE 234 MG/1.5 ML SYRINGE IM SCH (09:00)
[2017-06-24] MEDS: PROPRANOLOL HCL 10 MG TABLET PO SCH ×2 (09:00→16:35)
[2017-06-24 09:58] VITALS: BP 106/57
[2017-06-24 16:36] VITALS: BP 123/61
[2017-06-24] MEDS: ACETAMINOPHEN 325 MG TABLET PO PRN (19:28)
[2017-06-24] MEDS: LITHIUM CARBONATE 600 MG CAPSULE PO SCH (20:07)
[2017-06-24] MEDS: ZOLPIDEM TARTRATE 10 MG TABLET PO PRN (20:08)
[2017-06-25] MEDS: HALOPERIDOL 5 MG TABLET PO PRN ×3 (02:09→20:02)
[2017-06-25 02:14] VITALS: BP 136/76
[2017-06-25] MEDS: LEVOTHYROXINE SODIUM 50 MCG TABLET PO SCH (06:56)
[2017-06-25] MEDS: DOCUSATE SODIUM 250 MG CAPSULE PO SCH ×3 (09:00→16:18)
[2017-06-25] MEDS: RANITIDINE HCL 150 MG TABLET PO SCH ×2 (09:28→16:18)
[2017-06-25] MEDS: PRAVASTATIN SODIUM 10 MG TABLET PO SCH (09:28)
[2017-06-25] MEDS: MONTELUKAST SODIUM 10 MG TABLET PO SCH (09:28)
[2017-06-25] MEDS: CARBIDOPA/LEVODOPA 25-100 MG TABLET PO SCH ×3 (09:28→16:18)
[2017-06-25] MEDS: OMEPRAZOLE 20 MG CAPSULE PO SCH (09:28)
[2017-06-25] MEDS: PROPRANOLOL HCL 10 MG TABLET PO SCH ×2 (09:28→16:18)
[2017-06-25 09:31] VITALS: BP 135/77
[2017-06-25] MEDS: ACETAMINOPHEN 325 MG TABLET PO PRN (09:31)
[2017-06-25 16:09] VITALS: BP 137/76
[2017-06-25] MEDS: LITHIUM CARBONATE 600 MG CAPSULE PO SCH (20:02)
[2017-06-25] MEDS: ZOLPIDEM TARTRATE 10 MG TABLET PO PRN (20:08)
[2017-06-26 04:56] VITALS: BP 132/74
[2017-06-26] MEDS: LEVOTHYROXINE SODIUM 50 MCG TABLET PO SCH (07:00)
[2017-06-26] MEDS: RANITIDINE HCL 150 MG TABLET PO SCH ×2 (08:36→16:18)
[2017-06-26] MEDS: OMEPRAZOLE 20 MG CAPSULE PO SCH (08:37)
[2017-06-26] MEDS: PROPRANOLOL HCL 10 MG TABLET PO SCH ×2 (08:37→16:19)
[2017-06-26] MEDS: PRAVASTATIN SODIUM 10 MG TABLET PO SCH (08:37)
[2017-06-26] MEDS: CARBIDOPA/LEVODOPA 25-100 MG TABLET PO SCH ×3 (08:37→16:18)
[2017-06-26] MEDS: MONTELUKAST SODIUM 10 MG TABLET PO SCH (08:37)
[2017-06-26] MEDS: DOCUSATE SODIUM 250 MG CAPSULE PO SCH ×2 (08:38→16:19)
[2017-06-26 08:46] VITALS: BP 117/59
[2017-06-26 11:00] VITALS: BP 129/74
[2017-06-26] MEDS: ACETAMINOPHEN 325 MG TABLET PO PRN (11:00)
[2017-06-26 12:00] VITALS: BP 140/78
[2017-06-26 16:44] VITALS: BP 113/54
[2017-06-26] MEDS: ZOLPIDEM TARTRATE 10 MG TABLET PO SCH (20:05)
[2017-06-26] MEDS: LITHIUM CARBONATE 600 MG CAPSULE PO SCH (20:05)
[2017-06-27] MEDS: LEVOTHYROXINE SODIUM 50 MCG TABLET PO SCH (06:57)
[2017-06-27 08:28] VITALS: BP 133/66
[2017-06-27] MEDS: PRAVASTATIN SODIUM 10 MG TABLET PO SCH (09:23)
[2017-06-27] MEDS: DOCUSATE SODIUM 250 MG CAPSULE PO SCH ×2 (09:23→16:12)
[2017-06-27] MEDS: OMEPRAZOLE 20 MG CAPSULE PO SCH (09:23)
[2017-06-27] MEDS: PROPRANOLOL HCL 10 MG TABLET PO SCH ×2 (09:23→16:10)
[2017-06-27] MEDS: CARBIDOPA/LEVODOPA 25-100 MG TABLET PO SCH ×3 (09:24→16:10)
[2017-06-27] MEDS: RANITIDINE HCL 150 MG TABLET PO SCH ×2 (09:24→16:09)
[2017-06-27] MEDS: MONTELUKAST SODIUM 10 MG TABLET PO SCH (09:24)
[2017-06-27] MEDS: HALOPERIDOL 5 MG TABLET PO PRN (10:12)
[2017-06-27] MEDS: BENZTROPINE MESYLATE 1 MG TABLET PO SCH (16:12)
[2017-06-27 18:48] VITALS: BP 128/81
[2017-06-27] MEDS: ACETAMINOPHEN 325 MG TABLET PO PRN (18:51)
[2017-06-27 19:48] VITALS: BP 119/80
[2017-06-27] MEDS: LITHIUM CARBONATE 600 MG CAPSULE PO SCH (20:14)
[2017-06-27] MEDS: ZOLPIDEM TARTRATE 10 MG TABLET PO SCH (20:14)
[2017-06-27 22:07] VITALS: BP 136/75
[2017-06-28 04:37] VITALS: BP 130/91
[2017-06-28] MEDS: LEVOTHYROXINE SODIUM 50 MCG TABLET PO SCH (06:38)
[2017-06-28 08:10] VITALS: BP 137/58
[2017-06-28] MEDS: MONTELUKAST SODIUM 10 MG TABLET PO SCH (08:26)
[2017-06-28] MEDS: DOCUSATE SODIUM 250 MG CAPSULE PO SCH ×2 (08:27→17:18)
[2017-06-28] MEDS: CARBIDOPA/LEVODOPA 25-100 MG TABLET PO SCH ×3 (08:27→17:18)
[2017-06-28] MEDS: BENZTROPINE MESYLATE 1 MG TABLET PO SCH ×2 (08:27→17:18)
[2017-06-28] MEDS: OMEPRAZOLE 20 MG CAPSULE PO SCH (08:27)
[2017-06-28] MEDS: RANITIDINE HCL 150 MG TABLET PO SCH ×2 (08:27→17:18)
[2017-06-28] MEDS: PRAVASTATIN SODIUM 10 MG TABLET PO SCH (08:28)
[2017-06-28] MEDS: PROPRANOLOL HCL 10 MG TABLET PO SCH ×2 (08:28→17:18)
[2017-06-28] MEDS: HALOPERIDOL 5 MG TABLET PO PRN ×2 (09:29→17:18)
[2017-06-28 17:00] VITALS: BP 135/82
[2017-06-28] MEDS: LITHIUM CARBONATE 600 MG CAPSULE PO SCH (20:06)
[2017-06-28] MEDS: ZOLPIDEM TARTRATE 10 MG TABLET PO SCH (20:06)
[2017-06-29] MEDS: LEVOTHYROXINE SODIUM 50 MCG TABLET PO SCH (07:19)
[2017-06-29 08:05] VITALS: BP 130/76
[2017-06-29] MEDS: BENZTROPINE MESYLATE 1 MG TABLET PO SCH ×2 (10:26→17:00)
[2017-06-29] MEDS: DOCUSATE SODIUM 250 MG CAPSULE PO SCH ×2 (10:26→17:00)
[2017-06-29] MEDS: PRAVASTATIN SODIUM 10 MG TABLET PO SCH (10:26)
[2017-06-29] MEDS: PROPRANOLOL HCL 10 MG TABLET PO SCH ×2 (10:27→17:00)
[2017-06-29] MEDS: MONTELUKAST SODIUM 10 MG TABLET PO SCH (10:27)
[2017-06-29] MEDS: OMEPRAZOLE 20 MG CAPSULE PO SCH (10:27)
[2017-06-29] MEDS: CARBIDOPA/LEVODOPA 25-100 MG TABLET PO SCH ×3 (10:28→17:00)
[2017-06-29] MEDS: RANITIDINE HCL 150 MG TABLET PO SCH ×2 (10:28→17:00)
[2017-06-29] MEDS: HALOPERIDOL 5 MG TABLET PO PRN ×2 (10:58→17:00)
[2017-06-29] MEDS ORDERED: LOPERAMIDE HCL 2 MG CAPSULE PO PRN ×2 (15:00)
[2017-06-29 16:44] VITALS: BP 100/80
[2017-06-29] MEDS: LITHIUM CARBONATE 600 MG CAPSULE PO SCH (20:18)
[2017-06-29] MEDS: ZOLPIDEM TARTRATE 10 MG TABLET PO SCH (20:18)
[2017-06-30] MEDS: LEVOTHYROXINE SODIUM 50 MCG TABLET PO SCH (07:01)
[2017-06-30 08:00] VITALS: BP 116/69
[2017-06-30] MEDS: HALOPERIDOL 5 MG TABLET PO PRN ×2 (09:25→16:09)
[2017-06-30] MEDS: OMEPRAZOLE 20 MG CAPSULE PO SCH (09:25)
[2017-06-30] MEDS: MONTELUKAST SODIUM 10 MG TABLET PO SCH (09:25)
[2017-06-30] MEDS: PRAVASTATIN SODIUM 10 MG TABLET PO SCH (09:25)
[2017-06-30] MEDS: PROPRANOLOL HCL 10 MG TABLET PO SCH ×2 (09:25→16:08)
[2017-06-30] MEDS: DOCUSATE SODIUM 250 MG CAPSULE PO SCH ×2 (09:25→16:07)
[2017-06-30] MEDS: BENZTROPINE MESYLATE 1 MG TABLET PO SCH ×2 (09:25→16:08)
[2017-06-30] MEDS: RANITIDINE HCL 150 MG TABLET PO SCH ×2 (09:25→16:08)
[2017-06-30] MEDS: CARBIDOPA/LEVODOPA 25-100 MG TABLET PO SCH ×3 (09:25→16:08)
[2017-06-30 17:58] VITALS: BP 102/62
[2017-06-30] MEDS: ZOLPIDEM TARTRATE 10 MG TABLET PO SCH (20:20)
[2017-06-30] MEDS: LITHIUM CARBONATE 600 MG CAPSULE PO SCH (20:20)
[2017-07-01] MEDS: LEVOTHYROXINE SODIUM 50 MCG TABLET PO SCH (07:02)
[2017-07-01 08:07] VITALS: BP 130/63
[2017-07-01] MEDS: OMEPRAZOLE 20 MG CAPSULE PO SCH (08:27)
[2017-07-01] MEDS: MONTELUKAST SODIUM 10 MG TABLET PO SCH (08:28)
[2017-07-01] MEDS: DOCUSATE SODIUM 250 MG CAPSULE PO SCH ×2 (08:28→16:13)
[2017-07-01] MEDS: PROPRANOLOL HCL 10 MG TABLET PO SCH ×2 (08:28→16:13)
[2017-07-01] MEDS: PRAVASTATIN SODIUM 10 MG TABLET PO SCH (08:28)
[2017-07-01] MEDS: RANITIDINE HCL 150 MG TABLET PO SCH ×2 (08:28→16:13)
[2017-07-01] MEDS: CARBIDOPA/LEVODOPA 25-100 MG TABLET PO SCH ×3 (08:28→16:13)
[2017-07-01] MEDS: BENZTROPINE MESYLATE 1 MG TABLET PO SCH ×2 (08:28→16:12)
[2017-07-01] MEDS: HALOPERIDOL 5 MG TABLET PO PRN (16:13)
[2017-07-01 20:41] VITALS: BP 131/63
[2017-07-01] MEDS: ZOLPIDEM TARTRATE 10 MG TABLET PO SCH (21:12)
[2017-07-01] MEDS: LITHIUM CARBONATE 600 MG CAPSULE PO SCH (21:12)
[2017-07-02] MEDS: LEVOTHYROXINE SODIUM 50 MCG TABLET PO SCH (06:51)
[2017-07-02] MEDS: BENZTROPINE MESYLATE 1 MG TABLET PO SCH ×2 (08:49→16:06)
[2017-07-02] MEDS: RANITIDINE HCL 150 MG TABLET PO SCH ×2 (08:49→16:06)
[2017-07-02] MEDS: MONTELUKAST SODIUM 10 MG TABLET PO SCH (08:49)
[2017-07-02] MEDS: OMEPRAZOLE 20 MG CAPSULE PO SCH (08:49)
[2017-07-02] MEDS: CARBIDOPA/LEVODOPA 25-100 MG TABLET PO SCH ×3 (08:49→16:06)
[2017-07-02] MEDS: DOCUSATE SODIUM 250 MG CAPSULE PO SCH ×2 (08:49→16:06)
[2017-07-02] MEDS: PRAVASTATIN SODIUM 10 MG TABLET PO SCH (08:50)
[2017-07-02] MEDS: PROPRANOLOL HCL 10 MG TABLET PO SCH ×2 (08:50→16:06)
[2017-07-02 09:00] VITALS: BP 119/68
[2017-07-02 16:45] VITALS: BP 128/68
[2017-07-02] MEDS: LITHIUM CARBONATE 600 MG CAPSULE PO SCH (20:12)
[2017-07-02] MEDS: ZOLPIDEM TARTRATE 10 MG TABLET PO SCH (20:14)
[2017-07-03 05:46] VITALS: BP 128/70
[2017-07-03] MEDS: LEVOTHYROXINE SODIUM 50 MCG TABLET PO SCH (06:08)
[2017-07-03] MEDS: MONTELUKAST SODIUM 10 MG TABLET PO SCH (08:19)
[2017-07-03] MEDS: BENZTROPINE MESYLATE 1 MG TABLET PO SCH ×2 (08:19→16:09)
[2017-07-03] MEDS: HALOPERIDOL 5 MG TABLET PO PRN (08:19)
[2017-07-03] MEDS: PRAVASTATIN SODIUM 10 MG TABLET PO SCH (08:19)
[2017-07-03] MEDS: DOCUSATE SODIUM 250 MG CAPSULE PO SCH ×2 (08:19→16:08)
[2017-07-03] MEDS: OMEPRAZOLE 20 MG CAPSULE PO SCH (08:19)
[2017-07-03] MEDS: RANITIDINE HCL 150 MG TABLET PO SCH ×2 (08:20→16:08)
[2017-07-03] MEDS: PROPRANOLOL HCL 10 MG TABLET PO SCH ×2 (08:20→16:08)
[2017-07-03] MEDS: CARBIDOPA/LEVODOPA 25-100 MG TABLET PO SCH ×3 (08:20→16:08)
[2017-07-03 12:11] VITALS: BP 102/64
[2017-07-03 16:39] VITALS: BP 131/60
[2017-07-03] MEDS: ZOLPIDEM TARTRATE 10 MG TABLET PO SCH (20:25)
[2017-07-03] MEDS: LITHIUM CARBONATE 600 MG CAPSULE PO SCH (20:25)
[2017-07-04] MEDS: LEVOTHYROXINE SODIUM 50 MCG TABLET PO SCH (06:43)
[2017-07-04 08:00] VITALS: BP 129/47
[2017-07-04] MEDS: BENZTROPINE MESYLATE 1 MG TABLET PO SCH ×2 (08:23→16:07)
[2017-07-04] MEDS: OMEPRAZOLE 20 MG CAPSULE PO SCH (08:23)
[2017-07-04] MEDS: CARBIDOPA/LEVODOPA 25-100 MG TABLET PO SCH ×3 (08:23→16:07)
[2017-07-04] MEDS: RANITIDINE HCL 150 MG TABLET PO SCH ×2 (08:23→16:07)
[2017-07-04] MEDS: PRAVASTATIN SODIUM 10 MG TABLET PO SCH (08:23)
[2017-07-04] MEDS: DOCUSATE SODIUM 250 MG CAPSULE PO SCH ×2 (08:23→16:07)
[2017-07-04] MEDS: MONTELUKAST SODIUM 10 MG TABLET PO SCH (08:23)
[2017-07-04 09:10] VITALS: BP 136/81
[2017-07-04] MEDS: PROPRANOLOL HCL 10 MG TABLET PO SCH ×2 (09:16→16:07)
[2017-07-04] MEDS: ACETAMINOPHEN 325 MG TABLET PO PRN (12:00)
[2017-07-04] MEDS ORDERED: BENZ1TAB10 PO (14:57)
[2017-07-04 16:05] VITALS: BP 127/73
== END 2017-07-04 18:10 | disposition home or self-care (01) | DRG 750 ==
LOC: EMS 17:13 → 3EI 21:45
PROVIDERS: ADMIT Psychiatry & Neurology Psychiatry; ATTEND Psychiatry & Neurology Psychiatry
DX: F25.1 Schizoaffective disorder, depressive type (principal); G20 Parkinson's disease; R45.851 Suicidal ideations; F22 Delusional disorders; E03.9 Hypothyroidism, unspecified; E78.5 Hyperlipidemia, unspecified; F41.9 Anxiety disorder, unspecified; I10 Essential (primary) hypertension; J44.9 Chronic obstructive pulmonary disease, unspecified; K21.9 Gastro-esophageal reflux disease without esophagitis
CPT/HCPCS: 87081; 87086; 99285; G0480; J0515